=== PATIENT | female | born 1955 | race African-American/Black ===

== ENCOUNTER 2017-12-26 21:10 | Inpatient (IN) | payer MEDICARE ==
[2017-12-26] MEDS ORDERED: Naloxone* 0.4 MG/ML 1 ML VIAL ONE (22:26)
[2017-12-26] MEDS ORDERED: Naloxone* 0.4 MG/ML 1 ML VIAL IV PUSH ONE (22:31)
[2017-12-26] MEDS ORDERED: NS 0.9% 1000 ML*IV.FLUID BOLUS ONE (22:32)
[2017-12-27 00:09] LABS: ABS Basophils 0 10^3/ul (0-0.2); ABS Eosinophils 0.1 10^3/ul (0-0.6); ABS Lymphocytes 1.4 10^3/ul (1.0-4.8); ABS Monocytes 1.5 10^3/ul (0-0.8); ABS Neutrophils 5.3 10^3/ul (1.5-7.7); ABS Nucleated RBC 0 10^3/ul; Eosinophil % 0.9 % (0-6); Hematocrit 32 % (35-47); Hemoglobin 9.9 g/dl (12.0-16.0); Lymphocyte % 16.3 % (25-47); Mean Corpuscular HGB Conc 31 g/dl (31-36); Mean Corpuscular Hemoglobin 25 pg (27-31); Mean Corpuscular Volume 79 fL (80-97); Mean Platelet Volume 8.5 um3 (7.4-10.4); Nucleated Red Blood Cells % 0; Platelet Count 196 10^3/ul (150-450); Red Blood Count 4.04 10^6/ul (4.0-5.4); Red Cell Distribution Width 21 % (10.5-15); White Blood Count 8.3 10^3/ul (3.5-10.8)
[2017-12-27 00:23] LABS: INR 0.95 (0.77-1.02)
[2017-12-27] MEDS ORDERED: NS 0.9% 1000 ML* 1,000 ML IV ONE ×2 (00:33→01:28)
[2017-12-27 01:10] LABS: Urine Appearance Cloudy; Urine Blood 2+ (Negative); Urine Color Yellow; Urine Ketones Trace (Negative); Urine Protein 1+(30 mg/dL) (Negative); Urine Specific Gravity 1.019 (1.010-1.030); Urine Urobilinogen Negative (Negative)
--- NOTE | 2017-12-27 02:58 | HP ---
H&P (Free Text) History and Physical: PCP: ISABELL Yoder MD Date/Time: 12/27/2017 0130 CC: lethargy HPI: Mrs Segura is a 62YO female HX seizure disorder, CHF, HTN, chronic BLE edema, depression, fibromyalgia who is currently too lethargic to give much history. Multiple attempts were made to ask questions resulting in her falling asleep in the middle of even the briefest of answers. No family members are present. As such, much of this history is obtained from ED staff and the available medical record. She denies pain, SOB, F/C, cough, congestion, headache , B/U/F of urine, abdominal discomfort, or other issues. She denies HI/SI or medication abuse, intentional ingestion. ED nursing did report that the son stated he had moved her medications a couple of days ago so she wouldn't know where they were, but it was not clear why he felt the need to do so. At any rate , she lives with her son and he noticed her being excessively sleepy continuing in to Friday when he decided she should be evaluated. She did sustain a fall yesterday and initially reported knee pain to the ED, but denies now. After 3L NS, she remained lethargic & hypotensive and so Shin Bliss MD ED was requested to place a central line for pressor support. However, in the interval 1/2 hour prior to him being available, she became more alert and refused placement. While she could better answer questions, no new information was revealed. PMedHx seizure disorder CHF HTN chronic BLE edema new microcytic anemia depression fibromyalgia restless leg syndrome Ambulatory Orders Benadryl Allergy 25 mg PO PRN 12/27/17 Divalproex ER TAB(*) 1,000 mg PO BEDTIME 12/27/17 Embeda ER 20-0.8 mg Capsule 1 tab PO Q12HR PRN MDD 2 12/27/17 Enalapril Maleate 10 mg PO DAILY 12/27/17 Escitalopram (NF) 20 mg PO DAILY 12/27/17 Gabapentin 300 mg PO BID 12/27/17 Gabapentin 600 mg PO BEDTIME 12/27/17 Metoprolol Succinate XL TAB* 25 mg PO DAILY 12/27/17 Ropinirole HCl 1 mg PO BEDTIME 12/27/17 clonazePAM 1 mg PO TID PRN MDD 3 12/27/17 Allergies MS Codeine Allergy (Verified 12/26/17 21:33) unk SocHx: no tobacco, alcohol, or recreational drugs; lives with her son; disabled ; full code status FamHx: positive for lymphoma, CAD, HTN ROS: as above, otherwise reviewed and all were negative vitals: Vital Signs Temp 36.3 C 12/26/17 21:20 Pulse 81 12/27/17 02:45 Resp 10 12/27/17 02:45 BP 88/51 12/27/17 02:30 Pulse Ox 95 12/27/17 02:45 Intake & Output 12/26/17 12/26/17 12/27/17 11:59 23:59 11:59 Intake Total 1000 1000 Output Total 600 Balance 1000 400 Weight 81.647 kg Intake: IV Fluids 1000 1000 Output: Gerber 600 Constitutional: NAD, normally developed, overweight black female HEENM: atraumatic; sclera/conjunctiva: anicteric/clear; hearing: clinically intact; oropharynx: clear, mucosa tacky Neck: soft tissue: no nuchal rigidity; thyroid: normal Pulmonary: clear to auscultation bilaterally, good aeration, no accessory muscle use CV: RR/RR, normal S1S2, no carotid bruit, no jugular venous distention, 2+ B DP/ PT, 1+ BLE edema Abdominal: soft, non-distended, non-tender, no rebound/guarding/rigidity, normoactive bowel sounds, no hepatosplenomegaly or masses, no costovertebral angle tenderness Musculoskeletal: general: grossly intact, non-tender to palpation Integumental: normal appearance and texture of exposed skin Psychiatric orientation: somnolent, arouses with voice drifting very quickly back to light sleep, oriented to PP not TS affect: somnolent mood: acquiescent eye contact: poor content: unreliable responses: slowed insight: poor Testing: Lab Results 12/26/17 12/26/17 12/26/17 Range/Units 23:40 23:40 23:40 WBC (3.5-10.8) 10^3/ul RBC (4.0-5.4) 10^6/ul Hgb (12.0-16.0) g/dl Hct (35-47) % MCV (80-97) fL MCH (27-31) pg MCHC (31-36) g/dl RDW (10.5-15) % Plt Count (150-450) 10^3/ul MPV (7.4-10.4) um3 Neut % (Auto) (38-83) % Lymph % (Auto) (25-47) % Greene % (Auto) (0-7) % Eos % (Auto) (0-6) % Baso % (Auto) (0-2) % Absolute Neuts (auto) (1.5-7.7) 10^3/ul Absolute Lymphs (auto) (1.0-4.8) 10^3/ul Absolute Monos (auto) (0-0.8) 10^3/ul Absolute Eos (auto) (0-0.6) 10^3/ul Absolute Basos (auto) (0-0.2) 10^3/ul Absolute Nucleated RBC 10^3/ul Nucleated RBC % INR (Anticoag Therapy) 0.95 (0.77-1.02) Sodium 140 (139-145) mmol/L Potassium 4.2 (3.5-5.0) mmol/L Chloride 107 (101-111) mmol/L Carbon Dioxide 19 L (22-32) mmol/L Anion Gap 14 H (2-11) mmol/L BUN 61 H (6-24) mg/dL Creatinine 4.10 H (0.51-0.95) mg/dL Est GFR ( Amer) 14.1 (>60) Est GFR (Non-Af Amer) 11.0 (>60) BUN/Creatinine Ratio 14.9 (8-20) Glucose 95 (70-100) mg/dL Lactic Acid (0.5-2.0) mmol/L Calcium 8.5 L (8.6-10.3) mg/dL Total Bilirubin 0.30 (0.2-1.0) mg/dL AST 69 H (13-39) U/L ALT 23 (7-52) U/L Alkaline Phosphatase 68 (34-104) U/L Ammonia 39 (16-53) mcmol/L Total Creatine Kinase 3072 H (10-223) U/L Troponin I 0.00 (<0.04) ng/mL B-Natriuretic Peptide 56 ( - 100) pg/mL Total Protein 6.9 (6.4-8.9) g/dL Albumin 3.7 (3.2-5.2) g/dL Globulin 3.2 (2-4) g/dL Albumin/Globulin Ratio 1.2 (1-3) TSH 0.25 L (0.34-5.60) mcIU/mL Urine Color Urine Appearance Urine pH (5-9) Ur Specific [place] (1.010-1.030) Urine Protein (Negative) Urine Ketones (Negative) Urine Blood (Negative) Urine Nitrate (Negative) Urine Bilirubin (Negative) Urine Urobilinogen (Negative) Ur Leukocyte Esterase (Negative) Urine WBC (Auto) (Absent) Urine RBC (Auto) (Absent) Ur Squamous Epith Cells (Absent) Urine Bacteria (Absent) Hyaline Casts (Absent) Urine Glucose (Negative) Salicylates < 2.50 (<30) mg/dL Urine Opiates Screen (None Detect) Acetaminophen < 15 mcg/mL Ur Barbiturates Screen (None Detect) Valproic Acid 80.0 (50-100) mcg/mL Ur Phencyclidine Scrn (None Detect) Ur Amphetamines Screen (None Detect) U Benzodiazepines Scrn (None Detect) Urine Cocaine Screen (None Detect) U Cannabinoids Screen (None Detect) Serum Alcohol < 10 (<10) mg/dL 12/26/17 12/26/17 12/27/17 Range/Units 23:40 23:40 00:51 WBC 8.3 (3.5-10.8) 10^3/ul RBC 4.04 (4.0-5.4) 10^6/ul Hgb 9.9 L (12.0-16.0) g/dl Hct 32 L (35-47) % MCV 79 L (80-97) fL MCH 25 L (27-31) pg MCHC 31 (31-36) g/dl RDW 21 H (10.5-15) % Plt Count 196 (150-450) 10^3/ul MPV 8.5 (7.4-10.4) um3 Neut % (Auto) 64.5 (38-83) % Lymph % (Auto) 16.3 L (25-47) % Greene % (Auto) 17.9 H (0-7) % Eos % (Auto) 0.9 (0-6) % Baso % (Auto) 0.4 (0-2) % Absolute Neuts (auto) 5.3 (1.5-7.7) 10^3/ul Absolute Lymphs (auto) 1.4 (1.0-4.8) 10^3/ul Absolute Monos (auto) 1.5 H (0-0.8) 10^3/ul Absolute Eos (auto) 0.1 (0-0.6) 10^3/ul Absolute Basos (auto) 0 (0-0.2) 10^3/ul Absolute Nucleated RBC 0 10^3/ul Nucleated RBC % 0 INR (Anticoag Therapy) (0.77-1.02) Sodium (139-145) mmol/L Potassium (3.5-5.0) mmol/L Chloride (101-111) mmol/L Carbon Dioxide (22-32) mmol/L Anion Gap (2-11) mmol/L BUN (6-24) mg/dL Creatinine (0.51-0.95) mg/dL Est GFR ( Amer) (>60) Est GFR (Non-Af Amer) (>60) BUN/Creatinine Ratio (8-20) Glucose (70-100) mg/dL Lactic Acid 1.4 (0.5-2.0) mmol/L Calcium (8.6-10.3) mg/dL Total Bilirubin (0.2-1.0) mg/dL AST (13-39) U/L ALT (7-52) U/L Alkaline Phosphatase (34-104) U/L Ammonia (16-53) mcmol/L Total Creatine Kinase (10-223) U/L Troponin I (<0.04) ng/mL B-Natriuretic Peptide ( - 100) pg/mL Total Protein (6.4-8.9) g/dL Albumin (3.2-5.2) g/dL Globulin (2-4) g/dL Albumin/Globulin Ratio (1-3) TSH (0.34-5.60) mcIU/mL Urine Color Yellow Urine Appearance Cloudy Urine pH 5.0 (5-9) Ur Specific [place] 1.019 (1.010-1.030) Urine Protein 1+(30 mg/dl) A (Negative) Urine Ketones Trace A (Negative) Urine Blood 2+ A (Negative) Urine Nitrate Negative (Negative) Urine Bilirubin Negative (Negative) Urine Urobilinogen Negative (Negative) Ur Leukocyte Esterase Negative (Negative) Urine WBC (Auto) Trace(0-5/hpf) (Absent) Urine RBC (Auto) Trace(0-2/hpf) (Absent) Ur Squamous Epith Cells Present A (Absent) Urine Bacteria Absent (Absent) Hyaline Casts Present A (Absent) Urine Glucose Negative (Negative) Salicylates (<30) mg/dL Urine Opiates Screen (None Detect) Acetaminophen mcg/mL Ur Barbiturates Screen (None Detect) Valproic Acid (50-100) mcg/mL Ur Phencyclidine Scrn (None Detect) Ur Amphetamines Screen (None Detect) U Benzodiazepines Scrn (None Detect) Urine Cocaine Screen (None Detect) U Cannabinoids Screen (None Detect) Serum Alcohol (<10) mg/dL 12/27/17 Range/Units 00:51 WBC (3.5-10.8) 10^3/ul RBC (4.0-5.4) 10^6/ul Hgb (12.0-16.0) g/dl Hct (35-47) % MCV (80-97) fL MCH (27-31) pg MCHC (31-36) g/dl RDW (10.5-15) % Plt Count (150-450) 10^3/ul MPV (7.4-10.4) um3 Neut % (Auto) (38-83) % Lymph % (Auto) (25-47) % Greene % (Auto) (0-7) % Eos % (Auto) (0-6) % Baso % (Auto) (0-2) % Absolute Neuts (auto) (1.5-7.7) 10^3/ul Absolute Lymphs (auto) (1.0-4.8) 10^3/ul Absolute Monos (auto) (0-0.8) 10^3/ul Absolute Eos (auto) (0-0.6) 10^3/ul Absolute Basos (auto) (0-0.2) 10^3/ul Absolute Nucleated RBC 10^3/ul Nucleated RBC % INR (Anticoag Therapy) (0.77-1.02) Sodium (139-145) mmol/L Potassium (3.5-5.0) mmol/L Chloride (101-111) mmol/L Carbon Dioxide (22-32) mmol/L Anion Gap (2-11) mmol/L BUN (6-24) mg/dL Creatinine (0.51-0.95) mg/dL Est GFR ( Amer) (>60) Est GFR (Non-Af Amer) (>60) BUN/Creatinine Ratio (8-20) Glucose (70-100) mg/dL Lactic Acid (0.5-2.0) mmol/L Calcium (8.6-10.3) mg/dL Total Bilirubin (0.2-1.0) mg/dL AST (13-39) U/L ALT (7-52) U/L Alkaline Phosphatase (34-104) U/L Ammonia (16-53) mcmol/L Total Creatine Kinase (10-223) U/L Troponin I (<0.04) ng/mL B-Natriuretic Peptide ( - 100) pg/mL Total Protein (6.4-8.9) g/dL Albumin (3.2-5.2) g/dL Globulin (2-4) g/dL Albumin/Globulin Ratio (1-3) TSH (0.34-5.60) mcIU/mL Urine Color Urine Appearance Urine pH (5-9) Ur Specific [place] (1.010-1.030) Urine Protein (Negative) Urine Ketones (Negative) Urine Blood (Negative) Urine Nitrate (Negative) Urine Bilirubin (Negative) Urine Urobilinogen (Negative) Ur Leukocyte Esterase (Negative) Urine WBC (Auto) (Absent) Urine RBC (Auto) (Absent) Ur Squamous Epith Cells (Absent) Urine Bacteria (Absent) Hyaline Casts (Absent) Urine Glucose (Negative) Salicylates (<30) mg/dL Urine Opiates Screen Presumptive positive A (None Detect) Acetaminophen mcg/mL Ur Barbiturates Screen None detected (None Detect) Valproic Acid (50-100) mcg/mL Ur Phencyclidine Scrn None detected (None Detect) Ur Amphetamines Screen None detected (None Detect) U Benzodiazepines Scrn None detected (None Detect) Urine Cocaine Screen None detected (None Detect) U Cannabinoids Screen None detected (None Detect) Serum Alcohol (<10) mg/dL ECG, personally reviewed: NSR rate 82, no ischemia CXR, personally reviewed: diffuse vascular congestion w/o infiltrate CT brain WO, personally reviewed: IMPRESSON: Normal head. Impression: 62F presenting with lethargy over the prior 36 hours found to be in rhabdomyolysis w/ acute renal failure & hypotension; overall it is likely the rhabdo is 2nd to the fall with secondary renal failure contributed to by enalapril; hypotension is likely 2nd build up of blood pressure meds 2nd renal failure DIAGNOSIS & PLAN Primary rhabdomyolysis : IVFs : trend total CK : supportive care acute renal failure : IVFs, trend : consider nephrology consult in AM if no improvement : hold nephrotoxic agents hypotension of uncertain etiology : IVFs : ICU monitoring altered mental status/lethargy : hold morphine/naltrexone : hold clonazepam new microcytic anemia : check anemia labs : stool for occult blood Secondary seizure disorder : continue divalproex : seizure precautions HTN : hold enalapril & metoprolol for now chronic BLE edema : no acute issues depression : continue escitalopram fibromyalgia : continue gabapentin restless leg syndrome : hold ropinirole Admission Rational: inpatient for AMS, rhabdomyolysis, ARF, & hypotension not expected to be adequately improved w/i 48h to allow for discharge DVTp: SCDs Code Status: full HCP: son
[2017-12-27] MEDS ORDERED: Ondansetron INJ* 2 MG/ML VIAL IV PRN (03:34)
[2017-12-27] MEDS ORDERED: CMCS: Melatonin (NF) 3 MG TAB PO PRN (03:34)
[2017-12-27 04:12] LABS: Corrected Retic Count 0.6 % (0.5-1.5); Hematocrit for Retic CNT 32 % (35-47); Immature Retic Fraction 0.46; RBC Retic Count 4.03 10^6/ul (4.6-6.2)
--- NOTE | 2017-12-27 04:46 | ED ---
Rober Lynch Tecjoon, scribed for Tim Bliss MD on 12/26/17 at 2253 . Dizziness - HPI Summary HPI Summary: This patient is a 62 year old female presenting to [facility] accompanied by with a chief complaint of drowsiness, weakness since yesterday. Patient states that she suffered a mechanical fall yesterday. Patient reports knee pain from the fall, but denies any other injury. Patient rates pain 8/10. Symptoms aggravated by nothing. Symptoms alleviated by nothing. Patient additionally reports bilateral lower extremity edema. Patient denies dysuria, chest pain, lightheadedness. Patient was prescribed morphine for pain management, but states she doesnt use it. - History Of Current Complaint Chief Complaint: EDGeneral Stated Complaint: GENERAL ILLNESS Time Seen by Provider: 12/26/17 22:39 Hx Obtained From: Patient Onset/Duration: Still Present Timing: Constant Severity Currently: Moderate - 8/10 Aggravating Factor(s): Nothing Alleviating Factor(s): Nothing Associated Signs And Symptoms: Positive: Negative - dysuria, chest pain, lightheadedness, Other: - bilateral lower extremity edema, mechanical fall, drowsiness - Allergies/Home Medications Allergies/Adverse Reactions: Allergies Allergy/AdvReac Type Severity Reaction Status Date / Time MS Codeine Allergy unk Verified 12/26/17 21:33 Home Medications: Home Medications Benadryl Allergy 25 mg PO PRN 12/27/17 [History] Divalproex ER TAB(*) 1,000 mg PO BEDTIME 12/27/17 [History Confirmed 12/27/17] Embeda ER 20-0.8 mg Capsule 1 tab PO Q12HR PRN MDD 2 12/27/17 [History Confirmed 12/27/17] Enalapril Maleate 10 mg PO DAILY 12/27/17 [History Confirmed 12/27/17] Escitalopram (NF) 20 mg PO DAILY 12/27/17 [History Confirmed 12/27/17] Gabapentin 300 mg PO BID 12/27/17 [History Confirmed 12/27/17] Gabapentin 600 mg PO BEDTIME 12/27/17 [History Confirmed 12/27/17] Metoprolol Succinate XL TAB* 25 mg PO DAILY 12/27/17 [History Confirmed 12/27/17 ] Ropinirole HCl 1 mg PO BEDTIME 12/27/17 [History Confirmed 12/27/17] clonazePAM 1 mg PO TID PRN MDD 3 12/27/17 [History Confirmed 12/27/17] PMH/Surg Hx/FS Hx/Imm Hx Previously Healthy: No Cardiovascular History: Reports: Hx Congestive Heart Failure, Hx Hypertension Musculoskeletal History: Reports: Hx Fibromyalgia Sensory History: Reports: Hx Contacts or Glasses - reading glasses Opthamlomology History: Reports: Hx Contacts or Glasses - reading glasses Psychiatric History: Reports: Hx Bipolar Disorder, Hx Suicide Attempt, Hx of Violent Episodes Against Others Denies: Hx Eating Disorder - Cancer History Hx Chemotherapy: No Hx Radiation Therapy: No Infectious Disease History: No Infectious Disease History: Denies: Traveled Outside the [place] in Last 30 Days - Family History Known Family History: Positive: Hypertension - Social History Lives: With Family Alcohol Use: None Hx Substance Use: No Substance Use Type: Reports: None Hx Tobacco Use: No Smoking Status (MU): Never Smoked Tobacco Review of Systems Negative: Fever Negative: Chest Pain Negative: dysuria Positive: Other - bilateral lower extremity edema, knee pain Neurological: Negative - lightheadedness All Other Systems Reviewed And Are Negative: Yes Physical Exam - Summary Physical Exam Summary: Appearance: Well appearing, no pain distress Skin: warm, dry, reflects adequate perfusion Head/face: normal Eyes: Pupils dilated, even after Narcan ENT: normal Neck: No meningistismus Respiratory: CTA, breath sounds present Cardiovascular: RRR, pulses symmetrical Abdomen: non-tender, soft Bowel Sounds: present Musculoskeletal: 2-3+ lower extremity pitting edema Neuro: normal, sensory motor intact, A&Ox3 Triage Information Reviewed: Yes Vital Signs On Initial Exam: Initial Vitals Temp Pulse Resp BP Pulse Ox 97.3 F 80 16 78/46 96 12/26/17 21:20 12/26/17 21:20 12/26/17 21:20 12/26/17 21:20 12/26/17 21:20 Vital Signs Reviewed: Yes Diagnostics - Vital Signs Vital Signs Temp Pulse Resp BP Pulse Ox 12/26/17 21:59 70 13 93 12/26/17 21:47 144/109 12/26/17 21:20 97.3 F 80 16 78/46 96 - Laboratory Lab Results: Lab Results 12/26/17 12/26/17 12/26/17 Range/Units 23:40 23:40 23:40 WBC (3.5-10.8) 10^3/ul RBC (4.0-5.4) 10^6/ul RBC (Retic) (4.6-6.2) 10^6/ul Hgb (12.0-16.0) g/dl Hct (35-47) % HCT (Retic) (35-47) % MCV (80-97) fL MCH (27-31) pg MCHC (31-36) g/dl RDW (10.5-15) % Plt Count (150-450) 10^3/ul MPV (7.4-10.4) um3 Neut % (Auto) (38-83) % Lymph % (Auto) (25-47) % [place] % (Auto) (0-7) % Eos % (Auto) (0-6) % Baso % (Auto) (0-2) % Absolute Neuts (auto) (1.5-7.7) 10^3/ul Absolute Lymphs (auto) (1.0-4.8) 10^3/ul Absolute Monos (auto) (0-0.8) 10^3/ul Absolute Eos (auto) (0-0.6) 10^3/ul Absolute Basos (auto) (0-0.2) 10^3/ul Absolute Nucleated RBC 10^3/ul Nucleated RBC % Retic Count, Calc (0.5-1.5) % Corrected Retic Count (0.5-1.5) % Retic Shift Factor Retic Production Index Immature Retic Fraction Mean Retic Volume INR (Anticoag Therapy) 0.95 (0.77-1.02) Sodium 140 (139-145) mmol/L Potassium 4.2 (3.5-5.0) mmol/L Chloride 107 (101-111) mmol/L Carbon Dioxide 19 L (22-32) mmol/L Anion Gap 14 H (2-11) mmol/L BUN 61 H (6-24) mg/dL Creatinine 4.10 H (0.51-0.95) mg/dL Est GFR ( Amer) 14.1 (>60) Est GFR (Non-Af Amer) 11.0 (>60) BUN/Creatinine Ratio 14.9 (8-20) Glucose 95 (70-100) mg/dL Lactic Acid (0.5-2.0) mmol/L Calcium 8.5 L (8.6-10.3) mg/dL Iron Cancelled TIBC Cancelled % Saturation Cancelled Unsat Iron Binding Cancelled Transferrin Cancelled Ferritin Cancelled Total Bilirubin 0.30 (0.2-1.0) mg/dL AST 69 H (13-39) U/L ALT 23 (7-52) U/L Alkaline Phosphatase 68 (34-104) U/L Ammonia 39 (16-53) mcmol/L Lactate Dehydrogenase Cancelled Total Creatine Kinase 3072 H (10-223) U/L Troponin I 0.00 (<0.04) ng/mL B-Natriuretic Peptide 56 ( - 100) pg/mL Total Protein 6.9 (6.4-8.9) g/dL Albumin 3.7 (3.2-5.2) g/dL Globulin 3.2 (2-4) g/dL Albumin/Globulin Ratio 1.2 (1-3) Vitamin B12 Cancelled Folate Cancelled TSH 0.25 L (0.34-5.60) mcIU/mL Urine Color Urine Appearance Urine pH (5-9) Ur Specific [place] (1.010-1.030) Urine Protein (Negative) Urine Ketones (Negative) Urine Blood (Negative) Urine Nitrate (Negative) Urine Bilirubin (Negative) Urine Urobilinogen (Negative) Ur Leukocyte Esterase (Negative) Urine WBC (Auto) (Absent) Urine RBC (Auto) (Absent) Ur Squamous Epith Cells (Absent) Urine Bacteria (Absent) Hyaline Casts (Absent) Urine Glucose (Negative) Salicylates < 2.50 (<30) mg/dL Urine Opiates Screen (None Detect) Acetaminophen < 15 mcg/mL Ur Barbiturates Screen (None Detect) Valproic Acid 80.0 (50-100) mcg/mL Ur Phencyclidine Scrn (None Detect) Ur Amphetamines Screen (None Detect) U Benzodiazepines Scrn (None Detect) Urine Cocaine Screen (None Detect) U Cannabinoids Screen (None Detect) Serum Alcohol < 10 (<10) mg/dL 12/26/17 12/26/17 12/27/17 Range/Units 23:40 23:40 00:51 WBC 8.3 (3.5-10.8) 10^3/ul RBC 4.04 (4.0-5.4) 10^6/ul RBC (Retic) 4.03 L (4.6-6.2) 10^6/ul Hgb 9.9 L (12.0-16.0) g/dl Hct 32 L (35-47) % HCT (Retic) 32 L (35-47) % MCV 79 L (80-97) fL MCH 25 L (27-31) pg MCHC 31 (31-36) g/dl RDW 21 H (10.5-15) % Plt Count 196 (150-450) 10^3/ul MPV 8.5 (7.4-10.4) um3 Neut % (Auto) 64.5 (38-83) % Lymph % (Auto) 16.3 L (25-47) % [place] % (Auto) 17.9 H (0-7) % Eos % (Auto) 0.9 (0-6) % Baso % (Auto) 0.4 (0-2) % Absolute Neuts (auto) 5.3 (1.5-7.7) 10^3/ul Absolute Lymphs (auto) 1.4 (1.0-4.8) 10^3/ul Absolute Monos (auto) 1.5 H (0-0.8) 10^3/ul Absolute Eos (auto) 0.1 (0-0.6) 10^3/ul Absolute Basos (auto) 0 (0-0.2) 10^3/ul Absolute Nucleated RBC 0 10^3/ul Nucleated RBC % 0 Retic Count, Calc 0.9 (0.5-1.5) % Corrected Retic Count 0.6 (0.5-1.5) % Retic Shift Factor 1.5 Retic Production Index 0.40 Immature Retic Fraction 0.46 Mean Retic Volume 113.7 INR (Anticoag Therapy) (0.77-1.02) Sodium (139-145) mmol/L Potassium (3.5-5.0) mmol/L Chloride (101-111) mmol/L Carbon Dioxide (22-32) mmol/L Anion Gap (2-11) mmol/L BUN (6-24) mg/dL Creatinine (0.51-0.95) mg/dL Est GFR ( Amer) (>60) Est GFR (Non-Af Amer) (>60) BUN/Creatinine Ratio (8-20) Glucose (70-100) mg/dL Lactic Acid 1.4 (0.5-2.0) mmol/L Calcium (8.6-10.3) mg/dL Iron TIBC % Saturation Unsat Iron Binding Transferrin Ferritin Total Bilirubin (0.2-1.0) mg/dL AST (13-39) U/L ALT (7-52) U/L Alkaline Phosphatase (34-104) U/L Ammonia (16-53) mcmol/L Lactate Dehydrogenase Total Creatine Kinase (10-223) U/L Troponin I (<0.04) ng/mL B-Natriuretic Peptide ( - 100) pg/mL Total Protein (6.4-8.9) g/dL Albumin (3.2-5.2) g/dL Globulin (2-4) g/dL Albumin/Globulin Ratio (1-3) Vitamin B12 Folate TSH (0.34-5.60) mcIU/mL Urine Color Yellow Urine Appearance Cloudy Urine pH 5.0 (5-9) Ur Specific [place] 1.019 (1.010-1.030) Urine Protein 1+(30 mg/dl) A (Negative) Urine Ketones Trace A (Negative) Urine Blood 2+ A (Negative) Urine Nitrate Negative (Negative) Urine Bilirubin Negative (Negative) Urine Urobilinogen Negative (Negative) Ur Leukocyte Esterase Negative (Negative) Urine WBC (Auto) Trace(0-5/hpf) (Absent) Urine RBC (Auto) Trace(0-2/hpf) (Absent) Ur Squamous Epith Cells Present A (Absent) Urine Bacteria Absent (Absent) Hyaline Casts Present A (Absent) Urine Glucose Negative (Negative) Salicylates (<30) mg/dL Urine Opiates Screen (None Detect) Acetaminophen mcg/mL Ur Barbiturates Screen (None Detect) Valproic Acid (50-100) mcg/mL Ur Phencyclidine Scrn (None Detect) Ur Amphetamines Screen (None Detect) U Benzodiazepines Scrn (None Detect) Urine Cocaine Screen (None Detect) U Cannabinoids Screen (None Detect) Serum Alcohol (<10) mg/dL 12/27/17 Range/Units 00:51 WBC (3.5-10.8) 10^3/ul RBC (4.0-5.4) 10^6/ul RBC (Retic) (4.6-6.2) 10^6/ul Hgb (12.0-16.0) g/dl Hct (35-47) % HCT (Retic) (35-47) % MCV (80-97) fL MCH (27-31) pg MCHC (31-36) g/dl RDW (10.5-15) % Plt Count (150-450) 10^3/ul MPV (7.4-10.4) um3 Neut % (Auto) (38-83) % Lymph % (Auto) (25-47) % [place] % (Auto) (0-7) % Eos % (Auto) (0-6) % Baso % (Auto) (0-2) % Absolute Neuts (auto) (1.5-7.7) 10^3/ul Absolute Lymphs (auto) (1.0-4.8) 10^3/ul Absolute Monos (auto) (0-0.8) 10^3/ul Absolute Eos (auto) (0-0.6) 10^3/ul Absolute Basos (auto) (0-0.2) 10^3/ul Absolute Nucleated RBC 10^3/ul Nucleated RBC % Retic Count, Calc (0.5-1.5) % Corrected Retic Count (0.5-1.5) % Retic Shift Factor Retic Production Index Immature Retic Fraction Mean Retic Volume INR (Anticoag Therapy) (0.77-1.02) Sodium (139-145) mmol/L Potassium (3.5-5.0) mmol/L Chloride (101-111) mmol/L Carbon Dioxide (22-32) mmol/L Anion Gap (2-11) mmol/L BUN (6-24) mg/dL Creatinine (0.51-0.95) mg/dL Est GFR ( Amer) (>60) Est GFR (Non-Af Amer) (>60) BUN/Creatinine Ratio (8-20) Glucose (70-100) mg/dL Lactic Acid (0.5-2.0) mmol/L Calcium (8.6-10.3) mg/dL Iron TIBC % Saturation Unsat Iron Binding Transferrin Ferritin Total Bilirubin (0.2-1.0) mg/dL AST (13-39) U/L ALT (7-52) U/L Alkaline Phosphatase (34-104) U/L Ammonia (16-53) mcmol/L Lactate Dehydrogenase Total Creatine Kinase (10-223) U/L Troponin I (<0.04) ng/mL B-Natriuretic Peptide ( - 100) pg/mL Total Protein (6.4-8.9) g/dL Albumin (3.2-5.2) g/dL Globulin (2-4) g/dL Albumin/Globulin Ratio (1-3) Vitamin B12 Folate TSH (0.34-5.60) mcIU/mL Urine Color Urine Appearance Urine pH (5-9) Ur Specific [place] (1.010-1.030) Urine Protein (Negative) Urine Ketones (Negative) Urine Blood (Negative) Urine Nitrate (Negative) Urine Bilirubin (Negative) Urine Urobilinogen (Negative) Ur Leukocyte Esterase (Negative) Urine WBC (Auto) (Absent) Urine RBC (Auto) (Absent) Ur Squamous Epith Cells (Absent) Urine Bacteria (Absent) Hyaline Casts (Absent) Urine Glucose (Negative) Salicylates (<30) mg/dL Urine Opiates Screen Presumptive positive A (None Detect) Acetaminophen mcg/mL Ur Barbiturates Screen None detected (None Detect) Valproic Acid (50-100) mcg/mL Ur Phencyclidine Scrn None detected (None Detect) Ur Amphetamines Screen None detected (None Detect) U Benzodiazepines Scrn None detected (None Detect) Urine Cocaine Screen None detected (None Detect) U Cannabinoids Screen None detected (None Detect) Serum Alcohol (<10) mg/dL Result Diagrams: 12/26/17 23:40 12/26/17 23:40 Lab Statement: Any lab studies that have been ordered have been reviewed, and results considered in the medical decision making process. - Radiology CXR Xray Interpretation: No Acute Changes - CXR reveals, per radiologist, IMPRESSION : NO ACUTE INFILTRATE ED physician has reviewed this radiology report. Radiology Interpretation Completed By: Radiologist - CT CT Brain CT Interpretation: No Acute Changes - CT Head reveals, per radiologist, IMPRESSION: Normal Head. ED physician has reviewed this radiology report. CT Interpretation Completed By: Radiologist - EKG 6638 Cardiac Rate: NL EKG Rhythm: Sinus Rhythm - 82 BPM EKG Interpretation: NSR (82 BPM) normal axis, intervals, ST Re-Evaluation - Re-Evaluation First Eval Re-Evaluation Time: 00:37 Comment: Taking ibuprofen, on Lasix. Patient is not peeing. Dizzy Course/Dx - Course Course Of Treatment: very sedate but alert patient. No apparent injury. On opiates, benzos. No response to narcan. Son in control of medications (? hx of misuse). Pt BPs dropped, IV fluids large volume initiated. Her MS seem to improve thru stay however. MARLEEN with Cr over 4, previously nl. CK resulted high, likely from not moving about due to sedate status. CT neg. Hospitalist brian in room. Will place in ICU and watch BPs. Pt refused to have a CVC line placed. Admit for further, tx for pre-renal cause and rhabdo. - Diagnoses Differential Diagnosis/HQI/PQRI: Medication Reaction, Metabolic Abnormality, Seizure, Other - intercranial hemorrhage, OD, MARLEEN/uremia Provider Diagnoses: Acute renal failure, Rhabdomyolysis, Hypotension, Sedated due to multiple medications - Provider Notifications Discussed Care Of Patient With: Damián Blackmon - brian pt in ED, agrees at admit. Will place in ICU - Critical Care Time Critical Care Time: 30-74 min - CCT is exclusive of separately billable procedures Discharge - Sign-Out/Discharge Documenting (check all that apply): Discharge - Discharge Plan Condition: Guarded Disposition: ADMITTED TO [facility] - Billing Disposition and Condition Condition: GUARDED Disposition: [facility]P-[facility] [place] The documentation as recorded by the Rober newberry Tecjoon accurately reflects the service I personally performed and the decisions made by me, Tim Bliss MD.
[2017-12-27] MEDS: NS 0.9% 1000 ML* 1,000 ML IV SCH ×3 (05:18→19:03)
[2017-12-27] MEDS: Omeprazole CAP* 20 MG PO SCH (05:18)
[2017-12-27 06:14] LABS: ABS Basophils 0 10^3/ul (0-0.2); ABS Eosinophils 0.1 10^3/ul (0-0.6); ABS Lymphocytes 1.7 10^3/ul (1.0-4.8); ABS Monocytes 1.1 10^3/ul (0-0.8); ABS Neutrophils 3.7 10^3/ul (1.5-7.7); ABS Nucleated RBC 0 10^3/ul; Eosinophil % 1.7 % (0-6); Hematocrit 30 % (35-47); Hemoglobin 9.5 g/dl (12.0-16.0); Lymphocyte % 25.4 % (25-47); Mean Corpuscular HGB Conc 32 g/dl (31-36); Mean Corpuscular Hemoglobin 25 pg (27-31); Mean Corpuscular Volume 77 fL (80-97); Nucleated Red Blood Cells % 0.1; Platelet Count 191 10^3/ul (150-450); Red Blood Count 3.89 10^6/ul (4.0-5.4); Red Cell Distribution Width 21 % (10.5-15); White Blood Count 6.6 10^3/ul (3.5-10.8)
[2017-12-27 06:33] LABS: EGFR Non-African American 23.1 (>60)
--- NOTE | 2017-12-27 08:25 | PN ---
Hospitalist Progress Note Date of Service: 12/27/17 I have seen and examined Ms. Segura and assume her care today. She is a 62 year old female with history of bipolar disorder, depression, fibromyalgia. She was admitted overnight for weakness and drowsiness over the past few days and was found to be hypotensive and in acute renal failure. On exam this morning, she is alert, talkative, and in no distress. She has no complaints. SHe denies any new medications, denies alcohol or any illicit drugs , and denies taking any extra medications. BP is improved after volume resuscitation; she has not required any pressor support. On exam, she appears mildly dry. Oriented x 3, follows all commands appropriately. PERRL, face is symmetric, strength 5/5, rrr no murmurs, no rashes, lungs clear. Gerber catheter in place draining clear yellow urine. A/P: 1. Acute Renal Failure, may be due to rhabdo (+ blood, no RBCs in UA and elevated CK), vs ATN vs medication vs. prerenal It is unclear what caused rhabdo, she is not on any medications that should cause rhabdo. She denies falls but says she does not recall all the events of the past few days. Check phos Continue volume resuscitation today Hold gabapentin 2. Encephalopathy Improving today, likely due to polypharmacy in setting of renal failure 3. Hypotension resolved s/p IVF 4. bipolar/depression/fibromyalgia hold ropinerole, gabapentin. continue klonopin, escitalopram.
[2017-12-27] MEDS ORDERED: clonazePAM TAB(*) 1 MG PO PRN (08:28)
[2017-12-27] MEDS ORDERED: Gabapentin CAP(*) 300 MG PO SCH (09:00)
[2017-12-27] MEDS: CMCS: Escitalopram (NF) 10 MG TAB PO SCH (09:25)
[2017-12-27] MEDS: Docusate CAP* 100 MG PO SCH ×2 (09:25→21:14)
--- NOTE | 2017-12-27 09:49 | RAD ---
INDICATION: Altered mental status COMPARISON: Chest x-ray dated June 16, 2016 TECHNIQUE: Single AP portable view of the chest was obtained. FINDINGS: Image quality is compromised due to the relative inferiority of a portable chest x-ray. The heart and mediastinum exhibit normal size and contour. The lungs are grossly clear. There is a stable calcified granuloma measuring 9 mm overlying the right hilum as well as a smaller 3 mm calcified granuloma overlying the lateral right lower lung. There is no evidence of a large pleural effusion. Visualized bones are normal for the patient's age. Surgical clips are again seen overlying the expected location of the gastroesophageal junction and gastric fundus. IMPRESSION: No radiographic evidence for acute cardiopulmonary abnormality on this portable chest x-ray.
--- NOTE | 2017-12-27 10:05 | RAD ---
INDICATION: Altered mental status COMPARISON: None. TECHNIQUE: Contiguous axial sections of the brain were obtained from the skull base to the vertex without contrast. FINDINGS: The ventricles, cisterns and sulci are within normal limits. There is very mild periventricular and subcortical white matter hypoattenuation most consistent with chronic microvascular disease. Otherwise the larsen-white matter differentiation is adequately maintained and there is no sulcal effacement. No significant focal abnormality or mass effect is present. There is no evidence for intracranial hemorrhage. No significant focal osseous abnormality is present. The visualized portion of the paranasal sinuses appear clear. The mastoid air cells are well aerated bilaterally. IMPRESSION: Likely mild chronic microvascular disease without CT apparent acute intracranial abnormality.
[2017-12-27] MEDS: traMADol TAB* 50 MG PO PRN (12:13)
[2017-12-27] MEDS: Divalproex ER TAB(*) 500 MG PO SCH (21:15)
[2017-12-27] MEDS: Gabapentin CAP(*) 300 MG PO SCH (21:15)
[2017-12-28] MEDS: traMADol TAB* 50 MG PO PRN ×2 (00:04→13:57)
[2017-12-28] MEDS: NS 0.9% 1000 ML* 1,000 ML IV SCH ×2 (00:07→05:15)
[2017-12-28] MEDS: Omeprazole CAP* 20 MG PO SCH (05:43)
[2017-12-28 06:12] LABS: ABS Basophils 0 10^3/ul (0-0.2); ABS Eosinophils 0.1 10^3/ul (0-0.6); ABS Lymphocytes 1.7 10^3/ul (1.0-4.8); ABS Monocytes 0.8 10^3/ul (0-0.8); ABS Neutrophils 2.2 10^3/ul (1.5-7.7); ABS Nucleated RBC 0 10^3/ul; Eosinophil % 1.6 % (0-6); Hematocrit 29 % (35-47); Hemoglobin 9.2 g/dl (12.0-16.0); Lymphocyte % 34.8 % (25-47); Mean Corpuscular HGB Conc 32 g/dl (31-36); Mean Corpuscular Hemoglobin 25 pg (27-31); Mean Corpuscular Volume 77 fL (80-97); Mean Platelet Volume 8.8 um3 (7.4-10.4); Nucleated Red Blood Cells % 0; Platelet Count 151 10^3/ul (150-450); Red Blood Count 3.72 10^6/ul (4.0-5.4); Red Cell Distribution Width 21 % (10.5-15); White Blood Count 4.8 10^3/ul (3.5-10.8)
[2017-12-28 06:37] LABS: EGFR Non-African American 93.4 (>60)
[2017-12-28] MEDS: CMCS: Escitalopram (NF) 10 MG TAB PO SCH (09:45)
[2017-12-28] MEDS: Docusate CAP* 100 MG PO SCH ×2 (09:45→21:19)
[2017-12-28] MEDS: Acetaminophen TAB* 325 MG PO PRN (17:29)
--- NOTE | 2017-12-28 17:41 | PN ---
Subjective Date of Service: 12/28/17 Interval History: Feels much better today. Sitting up in the chair eating breakfast. No pain, no confusion. Worked with PT yesterday and felt that she did well. She does admit to several falls over the past month. She would be agreeable to STR if recommended. Objective Active Medications: Acetaminophen (Tylenol Tab*) 650 mg PO Q6H PRN PRN Reason: FEVER/PAIN Last Admin: 12/28/17 17:29 Dose: 650 mg Clonazepam (Klonopin Tab(*)) 1 mg PO TID PRN PRN Reason: ANXIETY Divalproex Sodium (Depakote Er Tab(*)) 1,000 mg PO BEDTIME [facility] Last Admin: 12/27/17 21:15 Dose: 1,000 mg Docusate Sodium (Colace Cap*) 200 mg PO BID [facility] Last Admin: 12/28/17 09:45 Dose: 200 mg Escitalopram Oxalate (Lexapro (Nf)) 20 mg PO DAILY [facility] Last Admin: 12/28/17 09:45 Dose: 20 mg Gabapentin (Neurontin Cap(*)) 600 mg PO BEDTIME [facility] Last Admin: 12/27/17 21:15 Dose: 600 mg Heparin Sodium (Porcine) (Heparin Flush Picc/Ml/Cvc(*)) 1 - 3 ml FLUSH 0600, 1800 [facility] PRN Reason: Protocol Last Admin: 12/28/17 17:31 Dose: 2 ml Melatonin (Melatonin (Nf)) 3 mg PO BEDTIME PRN; Protocol PRN Reason: Sleep Omeprazole (Prilosec Cap*) 20 mg PO DAILY@0600 [facility] Last Admin: 12/28/17 05:43 Dose: 20 mg Ondansetron HCl (Zofran Inj*) 4 mg IV Q6H PRN PRN Reason: NAUSEA Tramadol HCl (Ultram*) 50 mg PO Q6H PRN PRN Reason: PAIN Last Admin: 12/28/17 13:57 Dose: 50 mg Vital Signs - 8 hr 12/28/17 12/28/17 12/28/17 09:43 09:45 10:00 Temperature Pulse Rate 74 76 Respiratory 11 20 17 Rate Blood Pressure 129/85 (mmHg) O2 Sat by Pulse 90 92 Oximetry 12/28/17 12/28/17 12/28/17 10:15 10:30 10:45 Temperature Pulse Rate 104 93 91 Respiratory 21 15 21 Rate Blood Pressure 123/87 (mmHg) O2 Sat by Pulse 87 97 95 Oximetry 12/28/17 12/28/17 12/28/17 11:00 12:56 13:57 Temperature 98 F Pulse Rate 77 74 Respiratory 16 18 16 Rate Blood Pressure 125/78 151/87 (mmHg) O2 Sat by Pulse 93 98 Oximetry 12/28/17 12/28/17 15:44 16:00 Temperature 98.4 F Pulse Rate 58 Respiratory 16 Rate Blood Pressure 147/69 (mmHg) O2 Sat by Pulse 100 100 Oximetry Oxygen Devices in Use Now: None Appearance: alert, well appearing, oriented Eyes: No Scleral Icterus Ears/Nose/Mouth/Throat: NL Teeth, Lips, Gums Neck: NL Appearance and Movements; NL JVP Respiratory: Symmetrical Chest Expansion and Respiratory Effort, Clear to Auscultation Cardiovascular: NL Sounds; No Murmurs; No JVD, RRR Abdominal: NL Sounds; No Tenderness; No Distention Lymphatic: No Cervical Adenopathy Extremities: No Edema Skin: No Rash or Ulcers Neurological: Alert and Oriented x 3, NL Muscle Strength and Tone, - - no tremor. DTRs 2+ Result Diagrams: 12/28/17 06:00 12/28/17 06:00 Additional Lab and Data: Lab Results 12/26/17 12/26/17 12/26/17 Range/Units 23:40 23:40 23:40 WBC (3.5-10.8) 10^3/ul RBC (4.0-5.4) 10^6/ul RBC (Retic) (4.6-6.2) 10^6/ul Hgb (12.0-16.0) g/dl Hct (35-47) % HCT (Retic) (35-47) % MCV (80-97) fL MCH (27-31) pg MCHC (31-36) g/dl RDW (10.5-15) % Plt Count (150-450) 10^3/ul MPV (7.4-10.4) um3 Neut % (Auto) (38-83) % Lymph % (Auto) (25-47) % [place] % (Auto) (0-7) % Eos % (Auto) (0-6) % Baso % (Auto) (0-2) % Absolute Neuts (auto) (1.5-7.7) 10^3/ul Absolute Lymphs (auto) (1.0-4.8) 10^3/ul Absolute Monos (auto) (0-0.8) 10^3/ul Absolute Eos (auto) (0-0.6) 10^3/ul Absolute Basos (auto) (0-0.2) 10^3/ul Absolute Nucleated RBC 10^3/ul Nucleated RBC % Retic Count, Calc (0.5-1.5) % Corrected Retic Count (0.5-1.5) % Retic Shift Factor Retic Production Index Immature Retic Fraction Mean Retic Volume INR (Anticoag Therapy) 0.95 (0.77-1.02) Sodium 140 (139-145) mmol/L Potassium 4.2 (3.5-5.0) mmol/L Chloride 107 (101-111) mmol/L Carbon Dioxide 19 L (22-32) mmol/L Anion Gap 14 H (2-11) mmol/L BUN 61 H (6-24) mg/dL Creatinine 4.10 H (0.51-0.95) mg/dL Est GFR ( Amer) 14.1 (>60) Est GFR (Non-Af Amer) 11.0 (>60) BUN/Creatinine Ratio 14.9 (8-20) Glucose 95 (70-100) mg/dL Lactic Acid (0.5-2.0) mmol/L Calcium 8.5 L (8.6-10.3) mg/dL Iron Cancelled TIBC Cancelled % Saturation Cancelled Unsat Iron Binding Cancelled Transferrin Cancelled Ferritin Cancelled Total Bilirubin 0.30 (0.2-1.0) mg/dL AST 69 H (13-39) U/L ALT 23 (7-52) U/L Alkaline Phosphatase 68 (34-104) U/L Ammonia 39 (16-53) mcmol/L Lactate Dehydrogenase Cancelled Total Creatine Kinase 3072 H (10-223) U/L Troponin I 0.00 (<0.04) ng/mL B-Natriuretic Peptide 56 ( - 100) pg/mL Total Protein 6.9 (6.4-8.9) g/dL Albumin 3.7 (3.2-5.2) g/dL Globulin 3.2 (2-4) g/dL Albumin/Globulin Ratio 1.2 (1-3) Vitamin B12 Cancelled Folate Cancelled TSH 0.25 L (0.34-5.60) mcIU/mL Urine Color Urine Appearance Urine pH (5-9) Ur Specific [place] (1.010-1.030) Urine Protein (Negative) Urine Ketones (Negative) Urine Blood (Negative) Urine Nitrate (Negative) Urine Bilirubin (Negative) Urine Urobilinogen (Negative) Ur Leukocyte Esterase (Negative) Urine WBC (Auto) (Absent) Urine RBC (Auto) (Absent) Ur Squamous Epith Cells (Absent) Urine Bacteria (Absent) Hyaline Casts (Absent) Urine Glucose (Negative) Salicylates < 2.50 (<30) mg/dL Urine Opiates Screen (None Detect) Acetaminophen < 15 mcg/mL Ur Barbiturates Screen (None Detect) Valproic Acid 80.0 (50-100) mcg/mL Ur Phencyclidine Scrn (None Detect) Ur Amphetamines Screen (None Detect) U Benzodiazepines Scrn (None Detect) Urine Cocaine Screen (None Detect) U Cannabinoids Screen (None Detect) Serum Alcohol < 10 (<10) mg/dL 12/26/17 12/26/17 12/27/17 Range/Units 23:40 23:40 00:51 WBC 8.3 (3.5-10.8) 10^3/ul RBC 4.04 (4.0-5.4) 10^6/ul RBC (Retic) 4.03 L (4.6-6.2) 10^6/ul Hgb 9.9 L (12.0-16.0) g/dl Hct 32 L (35-47) % HCT (Retic) 32 L (35-47) % MCV 79 L (80-97) fL MCH 25 L (27-31) pg MCHC 31 (31-36) g/dl RDW 21 H (10.5-15) % Plt Count 196 (150-450) 10^3/ul MPV 8.5 (7.4-10.4) um3 Neut % (Auto) 64.5 (38-83) % Lymph % (Auto) 16.3 L (25-47) % Johnston % (Auto) 17.9 H (0-7) % Eos % (Auto) 0.9 (0-6) % Baso % (Auto) 0.4 (0-2) % Absolute Neuts (auto) 5.3 (1.5-7.7) 10^3/ul Absolute Lymphs (auto) 1.4 (1.0-4.8) 10^3/ul Absolute Monos (auto) 1.5 H (0-0.8) 10^3/ul Absolute Eos (auto) 0.1 (0-0.6) 10^3/ul Absolute Basos (auto) 0 (0-0.2) 10^3/ul Absolute Nucleated RBC 0 10^3/ul Nucleated RBC % 0 Retic Count, Calc 0.9 (0.5-1.5) % Corrected Retic Count 0.6 (0.5-1.5) % Retic Shift Factor 1.5 Retic Production Index 0.40 Immature Retic Fraction 0.46 Mean Retic Volume 113.7 INR (Anticoag Therapy) (0.77-1.02) Sodium (139-145) mmol/L Potassium (3.5-5.0) mmol/L Chloride (101-111) mmol/L Carbon Dioxide (22-32) mmol/L Anion Gap (2-11) mmol/L BUN (6-24) mg/dL Creatinine (0.51-0.95) mg/dL Est GFR ( Amer) (>60) Est GFR (Non-Af Amer) (>60) BUN/Creatinine Ratio (8-20) Glucose (70-100) mg/dL Lactic Acid 1.4 (0.5-2.0) mmol/L Calcium (8.6-10.3) mg/dL Iron TIBC % Saturation Unsat Iron Binding Transferrin Ferritin Total Bilirubin (0.2-1.0) mg/dL AST (13-39) U/L ALT (7-52) U/L Alkaline Phosphatase (34-104) U/L Ammonia (16-53) mcmol/L Lactate Dehydrogenase Total Creatine Kinase (10-223) U/L Troponin I (<0.04) ng/mL B-Natriuretic Peptide ( - 100) pg/mL Total Protein (6.4-8.9) g/dL Albumin (3.2-5.2) g/dL Globulin (2-4) g/dL Albumin/Globulin Ratio (1-3) Vitamin B12 Folate TSH (0.34-5.60) mcIU/mL Urine Color Yellow Urine Appearance Cloudy Urine pH 5.0 (5-9) Ur Specific [place] 1.019 (1.010-1.030) Urine Protein 1+(30 mg/dl) A (Negative) Urine Ketones Trace A (Negative) Urine Blood 2+ A (Negative) Urine Nitrate Negative (Negative) Urine Bilirubin Negative (Negative) Urine Urobilinogen Negative (Negative) Ur Leukocyte Esterase Negative (Negative) Urine WBC (Auto) Trace(0-5/hpf) (Absent) Urine RBC (Auto) Trace(0-2/hpf) (Absent) Ur Squamous Epith Cells Present A (Absent) Urine Bacteria Absent (Absent) Hyaline Casts Present A (Absent) Urine Glucose Negative (Negative) Salicylates (<30) mg/dL Urine Opiates Screen (None Detect) Acetaminophen mcg/mL Ur Barbiturates Screen (None Detect) Valproic Acid (50-100) mcg/mL Ur Phencyclidine Scrn (None Detect) Ur Amphetamines Screen (None Detect) U Benzodiazepines Scrn (None Detect) Urine Cocaine Screen (None Detect) U Cannabinoids Screen (None Detect) Serum Alcohol (<10) mg/dL 12/27/17 Range/Units 00:51 WBC (3.5-10.8) 10^3/ul RBC (4.0-5.4) 10^6/ul RBC (Retic) (4.6-6.2) 10^6/ul Hgb (12.0-16.0) g/dl Hct (35-47) % HCT (Retic) (35-47) % MCV (80-97) fL MCH (27-31) pg MCHC (31-36) g/dl RDW (10.5-15) % Plt Count (150-450) 10^3/ul MPV (7.4-10.4) um3 Neut % (Auto) (38-83) % Lymph % (Auto) (25-47) % Johnston % (Auto) (0-7) % Eos % (Auto) (0-6) % Baso % (Auto) (0-2) % Absolute Neuts (auto) (1.5-7.7) 10^3/ul Absolute Lymphs (auto) (1.0-4.8) 10^3/ul Absolute Monos (auto) (0-0.8) 10^3/ul Absolute Eos (auto) (0-0.6) 10^3/ul Absolute Basos (auto) (0-0.2) 10^3/ul Absolute Nucleated RBC 10^3/ul Nucleated RBC % Retic Count, Calc (0.5-1.5) % Corrected Retic Count (0.5-1.5) % Retic Shift Factor Retic Production Index Immature Retic Fraction Mean Retic Volume INR (Anticoag Therapy) (0.77-1.02) Sodium (139-145) mmol/L Potassium (3.5-5.0) mmol/L Chloride (101-111) mmol/L Carbon Dioxide (22-32) mmol/L Anion Gap (2-11) mmol/L BUN (6-24) mg/dL Creatinine (0.51-0.95) mg/dL Est GFR ( Amer) (>60) Est GFR (Non-Af Amer) (>60) BUN/Creatinine Ratio (8-20) Glucose (70-100) mg/dL Lactic Acid (0.5-2.0) mmol/L Calcium (8.6-10.3) mg/dL Iron TIBC % Saturation Unsat Iron Binding Transferrin Ferritin Total Bilirubin (0.2-1.0) mg/dL AST (13-39) U/L ALT (7-52) U/L Alkaline Phosphatase (34-104) U/L Ammonia (16-53) mcmol/L Lactate Dehydrogenase Total Creatine Kinase (10-223) U/L Troponin I (<0.04) ng/mL B-Natriuretic Peptide ( - 100) pg/mL Total Protein (6.4-8.9) g/dL Albumin (3.2-5.2) g/dL Globulin (2-4) g/dL Albumin/Globulin Ratio (1-3) Vitamin B12 Folate TSH (0.34-5.60) mcIU/mL Urine Color Urine Appearance Urine pH (5-9) Ur Specific [place] (1.010-1.030) Urine Protein (Negative) Urine Ketones (Negative) Urine Blood (Negative) Urine Nitrate (Negative) Urine Bilirubin (Negative) Urine Urobilinogen (Negative) Ur Leukocyte Esterase (Negative) Urine WBC (Auto) (Absent) Urine RBC (Auto) (Absent) Ur Squamous Epith Cells (Absent) Urine Bacteria (Absent) Hyaline Casts (Absent) Urine Glucose (Negative) Salicylates (<30) mg/dL Urine Opiates Screen Presumptive positive A (None Detect) Acetaminophen mcg/mL Ur Barbiturates Screen None detected (None Detect) Valproic Acid (50-100) mcg/mL Ur Phencyclidine Scrn None detected (None Detect) Ur Amphetamines Screen None detected (None Detect) U Benzodiazepines Scrn None detected (None Detect) Urine Cocaine Screen None detected (None Detect) U Cannabinoids Screen None detected (None Detect) Serum Alcohol (<10) mg/dL Microbiology and Other Data: Microbiology 12/27/17 04:35 Nasal Screen MRSA (PCR)([facility]) - Final Nasal Mrsa Not Detected Assess/Plan/Problems-Billing Assessment: 62 yo female with history of bipolar disorder, depression admitted with weakness and found to have MARLEEN - Patient Problems (1) Acute renal failure Current Visit: Yes Status: Acute Comment: Reports poor PO intake and feeling unwell for a week prior to admission She did have blood in urine and no rbcs, which may have suggested rhabdo, but ck was just mildly elevated Creatinine resolved quickly with IVF resuscitation, which supports a prerenal etiology; I suspect she may have been volume deplete from a viral illness and mild rhabdomyolysis (2) Delirium Current Visit: Yes Status: Acute Code(s): R41.0 - DISORIENTATION, UNSPECIFIED SNOMED Code(s): 8855975 Comment: Resolved May have been polypharmacy in setting of acute renal failure Her son thought she may have taken extra medications, she is unsure (3) Bipolar disorder Current Visit: No Status: Acute Comment: continue gabapentin, klonopin, lexapro, keppra Status and Disposition: PT reported unsteadiness, poor balance, and medium risk for falls with excellent rehab potential, and she and her son are agreeable to STR. Discussed with case managemetn.
[2017-12-28] MEDS: Divalproex ER TAB(*) 500 MG PO SCH (21:16)
[2017-12-28] MEDS: Gabapentin CAP(*) 300 MG PO SCH (21:19)
[2017-12-29] MEDS: Omeprazole CAP* 20 MG PO SCH (05:20)
[2017-12-29] MEDS: CMCS: Escitalopram (NF) 10 MG TAB PO SCH (08:42)
[2017-12-29] MEDS: traMADol TAB* 50 MG PO PRN ×3 (08:42→19:37)
[2017-12-29] MEDS: Docusate CAP* 100 MG PO SCH (08:42)
--- NOTE | 2017-12-29 10:35 | DS ---
CC: Dr. Yoder.* DISCHARGE SUMMARY: DATE OF ADMISSION: 12/26/17 DATE OF DISCHARGE: 12/29/17 PRIMARY CARE PROVIDER: Dr. Yoder. PRIMARY DIAGNOSES: 1. Acute renal failure. 2. Lethargy with associated hypotension. SECONDARY DIAGNOSES: 1. History of seizure disorder. 2. CHF. 3. Hypertension. 4. Depression. 5. Fibromyalgia. 6. Restless leg syndrome. MEDICATIONS ON DISCHARGE: Include: 1. Clonazepam 1 mg 3 times a day as needed for anxiety. 2. Depakote 1000 mg at bedtime. 3. Embeda ER 20/0.8 mg 1 tab twice daily as needed. 4. Enalapril 10 mg daily. 5. Escitalopram 20 mg daily. 6. Gabapentin 300 mg twice daily and 600 mg at bedtime. 7. Ropinirole 1 mg at bedtime. Please note medications which are discontinued include metoprolol, as well as Benadryl. PERTINENT LABORATORY DATA ON PRESENTATION: Creatinine 4.1 decreased to 0.64 a day prior to discharge. Total CK on presentation 3072. TSH 0.25. PERTINENT IMAGING: Performed during hospital stay, brain CT impression: Mildly chronic microvascular disease. HISTORY OF PRESENT ILLNESS AND HOSPITAL COURSE: This is a 62-year-old female with past medical history as outlined in the history of present illness, on the day of admission presented to the hospital after a week of feeling ill, punctuated by increased lethargy, with presentation notable for relative hypotension, systolics in the 60s to 70s, ultimately fluid responsive as well as acute kidney failure, BUN 61, creatinine 4.1 on presentation. On presentation, a central line was being moved to place, however, the patient ultimately became more alert, declined procedure. Her blood pressure and renal function improved with hydration, indicating likely prerenal source to her acute kidney failure. The patient notes that she had been feeling ill all week prior to presentation, although did not note any decreased p.o. intake. She noted that she felt like she had the flu, but did not check any fevers. I suspect she did have some decreased oral intake, resulting in some renal dysfunction, which may have exacerbated her lethargy in the setting of oral narcotics, benzodiazepines, Benadryl, which further led to decreased oral intake and worsened renal dysfunction. Additionally, elevated total CK indicated a lower level of rhabdomyolysis which may have been improving upon presentation, but that had resolved with further rehydration. Her heart rate ranged between the 50s and 80s during the course of the hospital stay off of metoprolol. For this reason, it was discontinued. Her enalapril was restarted upon discharge. Blood pressure was 153/68 on the day of discharge, off of enalapril and metoprolol. She was ambulatory on the day of discharge, felt well , eating and drinking, had no complaints. At followup, please; 1. Recommend repeating thyroid studies in 4 to 6 weeks after acute illness has resolved. TSH 0.25, no corresponding free T3 and free T4. 2. Evaluate blood pressure control. Restart metoprolol as needed. Transthoracic echocardiogram in 2016 did not indicate any systolic heart dysfunction. 3. Consider medication titration including benzodiazepines and opioids as similar problems or lethargy are recurrent. Reasons for return to the hospital including, but not limited to recurrent or worsening symptoms, fevers, chills, night sweats, chest pain, shortness of breath, nausea, vomiting, lightheadedness, loss of consciousness or near loss of consciousness, inability to obtain or tolerate medication were discussed with the patient. She acknowledged understanding. TIME SPENT: Greater than 45 minutes were spent on the discharge of this patient , greater than half was spent [id number] with the patient. [id number]/[facility] #: [id number] DAY[place]
[2017-12-29] MEDS: Acetaminophen TAB* 325 MG PO PRN ×2 (10:39→15:33)
[2017-12-29 13:27] VITALS: BP 150/75
== END 2017-12-29 22:00 | disposition home or self-care (01) | DRG 682 ==
LOC: ED 21:10 → MED 12-27 01:45 → ICU 12-27 02:56 → MED 12-28 12:53
PROVIDERS: ADMIT Hospitalist; ATTEND Internal Medicine
DX: N17.9 Acute kidney failure, unspecified (principal); G92 Toxic encephalopathy; M62.82 Rhabdomyolysis; I95.9 Hypotension, unspecified; R53.83 Other fatigue; G40.909 Epilepsy, unspecified, not intractable, without status epilepticus; I11.0 Hypertensive heart disease with heart failure; I50.9 Heart failure, unspecified; M79.7 Fibromyalgia; G25.81 Restless legs syndrome; M25.569 Pain in unspecified knee; R41.82 Altered mental status, unspecified; F31.9 Bipolar disorder, unspecified; D50.9 Iron deficiency anemia, unspecified; W18.30XA Fall on same level, unspecified, initial encounter; Z79.899 Other long term (current) drug therapy; Z88.5 Allergy status to narcotic agent; Z80.7 Family history of other malignant neoplasms of lymphoid, hematopoietic and related tissues; Z82.49 Family history of ischemic heart disease and other diseases of the circulatory system; Y92.009 Unspecified place in unspecified non-institutional (private) residence as the place of occurrence of the external cause
CPT/HCPCS: 36415; 70450; 71045; 80048; 80053; 80164; 80307; 80320; 80329; 81003; 81015; 82140; 82550; 82607; 82728; 82746; 83540; 83550; 83605; 83615; 83735; 83880; 84100; 84443; 84484; 85025; 85045; 85610; 87086; 87641; 93005; 94760; 99284; A9270-GY; C1751; G0480; G8978-GP-CJ; G8979-GP-CI; G8980-GP-CI; J2310

== ENCOUNTER 2019-02-03 20:36 | Emergency (ER) | payer MEDICAID, MEDICARE ==
--- OUTSIDE RECORDS SUMMARY | 2019-02-03 21:24 | XMS REPORT | Continuity of Care Document ---
:1955 External Reference #:[id number] Author Name Letty Claros Care Team Providers Name Role Phone Cristal Rivera MD Primary Care Physician Unavailable Payers Date Identification Numbers Payment Provider Subscriber Expires: Policy Number: [id number] [employer] (O) Julian Demarkoff 2016 PayID: [id number] [address] [address] [place] [address] Expires: 2016 Policy Number: [id number] Medicare Julian Demarkoff PayID: [id number] [address] [place] [address] Effective: 2018 Policy Number: [id number] [employer] Julian Demarkoff PayID: [id number] [address] [place] [address] Advance Directives Description No Information Available Problems Active Problems Provider Date Chronic back pain Thomas Yoder M.D.,FACP Onset: 06/20/2017 Essential hypertension Ernestine Zaldivar M.D. Onset: 05/02/2016 Insomnia Ernestine Zaldivar M.D. Onset: 05/02/2016 Generalized anxiety disorder Onset: Bipolar disorder Onset: Borderline personality disorder Ernestine Zaldivar M.D. Onset: 07/14/2016 Posttraumatic stress disorder Ernestine Zaldivar M.D. Onset: 07/14/2016 Histrionic personality disorder Ernestine Zaldivar M.D. Onset: 07/18/2016 Inactive Problems Mood disorder Onset: Inactive: 06/20/2017 Note: no depression per Dr. Rivera Family History Date Family Member(s) Observation Comments Father due to Cancer () : (age 62 Mother due to Colon Years) Cancer Mother due to CAD () - premature age 30 , HTN Siblings 2 brother younger age 50 d/t NOE brother older age 30 gun shot wound to heart First Brother 51 : (age 30 Second Brother due to Accidental gun shot Years) Social History Type Date Description Comments Sex Unknown Marital Status 10/29/2016 Lives With Alone Occupation Disabled ETOH Use 10/29/2016 Denies alcohol use Tobacco Use Start: Unknown Patient has never smoked Recreational Drug Use Denies Drug Use Smoking Status Reviewed: 01/15/19 Patient has never smoked Exercise Type/Frequency Exercises regularly stairs Allergies, Adverse Reactions, Alerts Active Allergies Reaction Severity Comments Date Ibuprofen Nausea and Vomiting, facial swelling 05/02/2016 Tylenol Urticaria, added body pain 05/02/2016 Medications Active Medications SIG Qnty Indications Ordering Date Provider Ropinirole HCL Take One Tablet 30tabs Raji Anderson, 10/12/2018 1mg By Mouth AT [employer]OB LITHOGRAPHER Tablets Bedtime Butrans apply one patch 2units G89.4 Shu Ojeda MD 02/19/2018 15mcg/HR Patches to the skin once Weekly every week Gabapentin take one capsule 120caps Thomas Bui 06/20/2017 300mg Capsules by mouth twice a Kuldeep Yoder,FACP day and take two capsules by mouth at bedtime Enalapril Maleate 1 by mouth every 90tabs I10 Shu Ojeda MD 08/19/2016 10mg day Tablets Clonazepam take one tablet 90tabs F31.72 Thomas Bui 1mg Tablets by mouth three Kuldeep Yoder,FACP times a day maximum daily dose=3 tablets Depakote ER Take Two Tablets 60tabs F31.72 [place] 500mg Tablets By Mouth AT Kuldeep Noonan ER 24HR Bedtime Bupropion Take One Tablet Unknown Hydrochloride ER (XL) By Mouth Every Morning 300mg Tablets ER 24HR Zolpidem Tartrate Take One Tablet Unknown 10mg By Mouth AT Tablets Bedtime as Needed For Sleep Maximum Daily Dose 1 History Medications Escitalopram Oxalate Take One Tablet By 30tabs F31.72 Raji Anderson, 08/15 - Mouth Every Day [employer]GR[employer]HER 01/15/2019 20mg Tablets Escitalopram Oxalate 1 by mouth every day 30tabs Thomas Bui 07/14/2017 - [place], 08/15/2017 10mg Tablets M.DBabatunde,FACP Toprol XL 1 by mouth every day 90tabs Thomas Bui 06/05/2017 - 25mg [place], 12/31/2017 Tablets ER 24HR M.DBabatunde,FACP Oxycodone HCL 1 by mouth every 6 60tabs Thomas Bui 02/13/2017 - 5mg hours as needed [place], 12/16/2017 Tablets M.Hao,FACP Butrans apply one patch to [address] [place] [address] 11/21/2016 - 15mcg/HR the skin once every Villanueva, SETUP OPERATOR 12/16/2017 Patches Weekly week [facility] Thomas Bui 10/29/2016 - 10mcg/HR [place], 11/21/2016 Patches Weekly Kuldeep,FACP Atenolol take 1 tablet by 90tabs Thomas Bui 10/29/2016 - 25mg Tablets mouth one time daily [place], 06/05/2017 Kuldeep,FACP Quetiapine Fumarate one by mouth at at Unknown 07/10/2016 - bedtime 08/19/2016 400mg Tablets Bezzerginian is not taking it Ambien take 1 tablet by 30tabs G47.00 Ernestine 05/14/2016 - 10mg Tablets mouth nightly at Kuldeep Zaldivar 07/14/2016 bedtime as needed Trazodone HCL take 1 & 1/2 tablets 90tabs Ernestine 05/02/2016 - 100mg by mouth every night Kuldeep Zaldivar 07/14/2016 Tablets at bedtime as needed Requip Take One Tablet By 30tabs Raji Anderson, - 1mg Tablets Mouth AT Bedtime [facility] 11/10/2018 Morphine Sulfate Take One Tablet By Unknown - 15mg Mouth Every 12 Hours 12/31/2017 Tablets as Directed Maximum Daily Dose Embeda 1 tab bid prn Derek Pedro, - 20-0.8mg DO 03/04/2018 Capsules ER Hydroxyzine HCL take one tablet by 90tabs Thomas Bui - 25mg mouth three times a [place], 12/31/2017 Tablets day as needed for M.D.,FACP anxiety Benadryl Allergy as needed for Unknown - 25mg insomnia /anxiety 08/19/2016 Tablets Potassium Chloride 1 by mouth every day Unknown - Idalmis ER 08/19/2016 Tablets Lasix 1 tablet by mouth as Unknown - 20mg Tablets needed for swelling 08/19/2016 Atenolol 1 by mouth every day Unknown - 25mg Tablets 08/19/2016 Atenolol 1 by mouth every day Unknown - 25mg Tablets 06/03/2016 Gabapentin 2 by mouth three Unknown - 300mg times a day per 10/29/2016 Capsules hospi discharge Zoloft 1 by mouth every day Unknown - 25mg Tablets 07/14/2016 Enalapril Maleate 1/2 by mouth every 90tabs Ernestine - day Kuldeep Zaldivar 08/19/2016 10mg Tablets Gabapentin 1 by mouth three Unknown - 300mg times a day not 05/14/2016 Capsules taking , not on pharmacy refills Potassium Chloride not taking currently Unknown - previosuly 06/03/2016 10Meq/100ML Solution prescribed Furosemide 1 by mouth every day Unknown - 20mg not currently taking 06/03/2016 Tablets Xanax one by mouth three Unknown - 2mg Tablets times a day as 07/14/2016 needed anxiety Ambien CR take 1 tablet by Unknown - 12.5mg mouth at bedtime as 05/14/2016 Tablets ER needed max 1/day Trazodone HCL 1 tablet at bedtime Unknown - 50mg as needed 05/02/2016 Tablets Clonidine HCL 1 by mouth twice a Unknown - 0.1mg day 05/02/2016 Tablets Risperidone 1 by mouth twice a 28tabs Ernestine - 1mg day.... Kuldeep Zaldivar 07/14/2016 Tablets Dispers Quetiapine Fumarate one by mouth at at 30tabs Ernestine - bedtime Kuldeep Zaldivar 07/14/2016 200mg Tablets Bupropion HCL ER 1 by mouth every day 60tabs Ernestine - (XL) Kuldeep Zaldivar 07/14/2016 300mg Tablets ER 24HR Immunizations CPT Code Status Date Vaccine Lot # [id number] Given 08/19/2016 Influ Virus Vaccine, Quadrivalent, Split Virus, Im [id number] Fluzone not PF Vital Signs Date Vital Result Comment 01/15/2019 1:33pm Height 66 inches 5'6" Weight 193.50 lb Heart Rate 94 /min BP Systolic 169 mmHg BP Diastolic 104 mmHg Body Temperature 97.3 F O2 % BldC Oximetry 99 % BMI (Body Mass Index) 31.2 kg/m2 03/04/2018 2:02pm Height 66 inches 5'6" Weight 186.12 lb Heart Rate 98 /min BP Systolic 120 mmHg BP Diastolic 78 mmHg O2 % BldC Oximetry 96 % BMI (Body Mass Index) 30.0 kg/m2 01/06/2018 12:04pm Weight 188.00 lb Heart Rate 90 /min BP Systolic Sitting 128 mmHg BP Diastolic Sitting 80 mmHg Body Temperature 98.0 F O2 % BldC Oximetry 96 % 12/16/2017 11:13am Weight 193.00 lb Heart Rate 79 /min BP Systolic 142 mmHg BP Diastolic 88 mmHg Body Temperature 98.1 F O2 % BldC Oximetry 97 % 06/20/2017 3:58pm Height 66 inches 5'6" Weight 152.00 lb Heart Rate 74 /min BP Systolic Sitting 110 mmHg BP Diastolic Sitting 74 mmHg Body Temperature 97.9 F O2 % BldC Oximetry 98 % BMI (Body Mass Index) 24.5 kg/m2 02/13/2017 2:10pm Weight 159.00 lb Heart Rate 108 /min BP Systolic 138 mmHg BP Diastolic 82 mmHg Body Temperature 98.7 F O2 % BldC Oximetry 97 % 10/29/2016 2:39pm Weight 153.00 lb with shoes Heart Rate 112 /min BP Systolic 150 mmHg BP Diastolic 104 mmHg BP Systolic Recheck 135 mmHg BP Diastolic Recheck 88 mmHg O2 % BldC Oximetry 98 % 08/19/2016 1:01pm Weight 153.00 lb Heart Rate 79 /min BP Systolic Sitting 150 mmHg BP Diastolic Sitting 108 mmHg Body Temperature 97.9 F O2 % BldC Oximetry 99 % 08/19/2016 12:15pm Height 68 inches 5'8" 06/03/2016 2:06pm Height 68 inches 5'8" Weight 136.00 lb with shoes Heart Rate 88 /min BP Systolic 140 mmHg Ra reg cuff BP Diastolic 96 mmHg Ra reg cuff BP Systolic Sitting 142 mmHg LA reg cuff BP Diastolic Sitting 92 mmHg LA reg cuff BP Systolic Standing 146 mmHg LA reg cuff BP Diastolic Standing 94 mmHg LA reg cuff Respiratory Rate 16 /min BMI (Body Mass Index) 20.7 kg/m2 05/14/2016 11:12am Weight 134.00 lb Heart Rate 101 /min BP Systolic Sitting 124 mmHg BP Diastolic Sitting 80 mmHg Body Temperature 98.0 F O2 % BldC Oximetry 98 % 05/02/2016 10:16am Height 65 inches 5'5" Weight 129.00 lb Heart Rate 112 /min BP Systolic Sitting 140 mmHg BP Diastolic Sitting 96 mmHg Body Temperature 96.6 F O2 % BldC Oximetry 96 % BMI (Body Mass Index) 21.5 kg/m2 Results Test Date Facility Test Result H/L Range Note Comp Metabolic Panel 07/15/2018 [facility] Sodium 139 mmol/L N 135-145 [address] [place] [address] [phone] Potassium 4.5 mmol/L N 3.5-5.0 Chloride 106 mmol/L N 101-111 Co2 Carbon Dioxide 24 mmol/L N 22-32 Anion Gap 9 mmol/L N 2-11 Glucose 96 mg/dL N 70-100 Blood Urea Nitrogen 15 mg/dL N 6-24 Creatinine 0.89 mg/dL N 0.51-0.95 BUN/Creatinine Ratio 16.9 N 8-20 Calcium 8.7 mg/dL N 8.6-10.3 Total Protein 7.6 g/dL N 6.4-8.9 Albumin 4.0 g/dL N 3.2-5.2 Globulin 3.6 g/dL N 2-4 Albumin/Globulin Ratio 1.1 N 1-3 Total Bilirubin 0.40 mg/dL N 0.2-1.0 Alkaline Phosphatase 68 U/L N 34-104 Alt 9 U/L N 7-52 Ast 15 U/L N 13-39 Egfr Non- 63.7 >60 Egfr 77.0 >60 1 Laboratory test 07/15/2018 [facility] Valproic Acid 16.0 Low 50-[address] (Depakene) g/[place] [address] [phone] Lipid Profile 07/15/2018 [facility] Triglycerides 55 mg/dL 2 (Trig/Chol/HDL) [address] [place] [address] [phone] Cholesterol 162 mg/dL 3 HDL Cholesterol 103.8 mg/dL 4 LDL Cholesterol 47 mg/dL 5 Laboratory test 07/15/2018 [facility] TSH (Thyroid 1.40 mcIU/mL N 0.34-5.[address] Stim Horm) [place] [address] [phone] Vitamin B12 459 pg/mL N 180-914 6 CBC Auto Diff 07/15/2018 [facility] White Blood 6.5 10^3/uL N 3.5-10.[address] [place] [address] [phone] Red Blood Count 4.68 10^6/uL N 4.00-5.40 Hemoglobin 12.7 g/dL N 12.0-16.0 Hematocrit 39 % N 35-47 Mean Corpuscular Volume 83 fL N 80-97 Mean Corpuscular Hemoglobin 27 pg N 27-31 Mean Corpuscular HGB Conc 33 g/dL N 31-36 Red Cell Distribution Width 16 % High 10.5-15 Platelet Count 288 10^3/uL N 150-450 Mean Platelet Volume 8.8 um3 N 7.4-10.4 Abs Neutrophils 3.3 10^3/uL N 1.5-7.7 Abs Lymphocytes 2.4 10^3/uL N 1.0-4.8 Abs Monocytes 0.7 10^3/uL N 0-0.8 Abs Eosinophils 0 10^3/uL N 0-0.6 Abs Basophils 0.1 10^3/uL N 0-0.2 Abs Nucleated RBC 0 10^3/uL Granulocyte % 52.0 % N 38-83 Lymphocyte % 36.4 % N 25-47 Monocyte % 10.4 % High 0-7 Eosinophil % 0.4 % N 0-6 Basophil % 0.8 % N 0-2 Nucleated Red Blood Cells % 0.1 Laboratory test 07/15/2018 [facility] Free T4 (Free 0.79 ng/dL N 0.61-1.[address] Thyroxine) [place] [address] [phone] T3 Total 109 ng/dL N 87-178 Urinalysis Profile 12/27/2017 [facility] Urine Color Yellow [address] [place] [address] [phone] Urine Appearance Cloudy Urine Specific [place] 1.019 N 1.010-1.030 Urine pH 5.0 N 5-9 Urine Urobilinogen Negative Negative Urine Ketones Trace Abnormal Negative Urine Protein 1+(30 mg/dL) Abnormal Negative Urine Leukocytes Negative Negative Urine Blood 2+ Abnormal Negative Urine Nitrite Negative Negative Urine Bilirubin Negative Negative Urine Glucose Negative Negative Urine White Blood Cell Trace(0-5/hpf) Absent Urine Red Blood Cell Trace(0-2/hpf) Absent Urine Bacteria Absent Absent Urine Squamous Epithelial Cell Present Abnormal Absent Urine Hyaline Casts Present Abnormal Absent Urine Drug 12/27/2017 [facility] Amphetamine Ur None Detected None Detect SCR ED & [address] [place] [address] [phone] Barbiturates Urine Screen None Detected None Detect Benzodiazepine Urine Screen None Detected None Detect Urine Cannabinoids Screen None Detected None Detect Urine Cocaine Screen None Detected None Detect Urine Opiates Screen Presumptive Posi <SEE NOTE> Abnormal None Detect 7 Urine Phencyclidine Screen None Detected None Detect 8 Urine Culture And 12/27/2017 [facility] Urine Culture SEE RESULT [address] [place] [address] [phone] Retic Count 12/26/2017 [facility] Retic Count 0.9 % N 0.5-1. [address] [place] [address] [phone] Corrected Retic Count 0.6 % N 0.5-1.5 Maturation Factor Retic 1.5 Retic Index 0.40 Mean Retic Volume 113.7 Immature Retic Fraction 0.46 RBC Retic Count 4.03 10^6/uL Low 4.6-6.2 Hematocrit for Retic CNT 32 % Low 35-47 Laboratory test 12/26/2017 [facility] Valproic Acid 80.0 g/mL N 50-[address] (Depakene) [place] [address] [phone] Acetaminophen < 15 g/mL 10 Alcohol < 10 mg/dL N <10 Salicylate < 2.50 mg/dL <30 Troponin-I (TnI) 0.00 ng/mL <0.04 TSH (Thyroid Stim Horm) 0.25 mcIU/mL Low 0.34-5.60 Creatine Kinase(CK) 3072 U/L High 10-223 Comp Metabolic Panel 12/26/2017 [facility] Sodium 140 mmol/L N 139-[address] [place] [address] [phone] Potassium 4.2 mmol/L N 3.5-5.0 Chloride 107 mmol/L N 101-111 Co2 Carbon Dioxide 19 mmol/L Low 22-32 Anion Gap 14 mmol/L High 2-11 Calcium 8.5 mg/dL Low 8.6-10.3 Albumin 3.7 g/dL N 3.2-5.2 Total Bilirubin 0.30 mg/dL N 0.2-1.0 Glucose 95 mg/dL N 70-100 Blood Urea Nitrogen 61 mg/dL High 6-24 Creatinine 4.10 mg/dL High 0.51-0.95 BUN/Creatinine Ratio 14.9 N 8-20 Total Protein 6.9 g/dL N 6.4-8.9 Globulin 3.2 g/dL N 2-4 Albumin/Globulin Ratio 1.2 N 1-3 Alkaline Phosphatase 68 U/L N 34-104 Alt 23 U/L N 7-52 Ast 69 U/L High 13-39 Egfr Non- 11.0 >60 Egfr 14.1 >60 11 Laboratory test 12/26/2017 [facility] Lactic Acid 1.4 mmol/L N 0.5-2.[address] [place] [address] [phone] CBC Auto Diff 12/26/2017 [facility] White Blood 8.3 10^3/uL N 3.5-10.[address] [place] [address] [phone] Red Blood Count 4.04 10^6/uL N 4.0-5.4 Hemoglobin 9.9 g/dL Low 12.0-16.0 Hematocrit 32 % Low 35-47 Mean Corpuscular Volume 79 fL Low 80-97 Mean Corpuscular Hemoglobin 25 pg Low 27-31 Mean Corpuscular HGB Conc 31 g/dL N 31-36 Red Cell Distribution Width 21 % High 10.5-15 Platelet Count 196 10^3/uL N 150-450 Mean Platelet Volume 8.5 um3 N 7.4-10.4 Abs Neutrophils 5.3 10^3/uL N 1.5-7.7 Abs Lymphocytes 1.4 10^3/uL N 1.0-4.8 Abs Monocytes 1.5 10^3/uL High 0-0.8 Abs Eosinophils 0.1 10^3/uL N 0-0.6 Abs Basophils 0 10^3/uL N 0-0.2 Abs Nucleated RBC 0 10^3/uL Granulocyte % 64.5 % N 38-83 Lymphocyte % 16.3 % Low 25-47 Monocyte % 17.9 % High 0-7 Eosinophil % 0.9 % N 0-6 Basophil % 0.4 % N 0-2 Nucleated Red Blood Cells % 0 Laboratory test finding 12/26/2017 [facility] Ammonia 39 mcmol/ L N 16-[address] [place] [address] [phone] B-Type Natriuretic Peptide BNP 56 pg/mL 13 Inr/Protime 12/26/2017 [facility] Inr 0.95 N 0.77-1.[address] [place] [address] [phone] Laboratory test 02/13/2017 [facility] Valproic Acid < 13.0 Low 50-[address] (Depakene) g/[place] [address] [phone] Basic Metabolic 02/13/2017 [facility] Sodium 138 N 133-[address] mmol/[place] [address] [phone] Potassium 4.1 mmol/L N 3.5-5.0 Chloride 105 mmol/L N 101-111 Co2 Carbon Dioxide 26 mmol/L N 22-32 Anion Gap 7 mmol/L N 2-11 Glucose 93 mg/dL N 70-100 Blood Urea Nitrogen 15 mg/dL N 6-24 Creatinine 0.83 mg/dL N 0.51-0.95 BUN/Creatinine Ratio 18.1 N 8-20 Egfr Non- 69.4 N >60 Egfr 89.3 N >60 14 Calcium 8.9 mg/dL N 8.6-10.3 HIV 1/2 AB 09/02/2016 [facility] HIV 1 2 Nonreactive N Nonreactive [address] [place] [address] [phone] Laboratory 09/02/2016 [facility] Hepatitis C Nonreactive N Nonreactive test finding [address] [place] [address] [phone] CBC Auto Diff 09/02/2016 [facility] White Blood 4.3 10^3/uL N 3.5-10.[address] [place] [address] [phone] Red Blood Count 4.39 10^6/uL N 4.0-5.4 Hemoglobin 12.7 g/dL N 12.0-16.0 Hematocrit 39 % N 35-47 Mean Corpuscular Volume 88 fL N 80-97 Mean Corpuscular Hemoglobin 29 pg N 27-31 Mean Corpuscular HGB Conc 33 g/dL N 31-36 Red Cell Distribution Width 14 % N 10.5-15 Platelet Count 217 10^3/uL N 150-450 Mean Platelet Volume 9 um3 N 7.4-10.4 Abs Neutrophils 1.6 10^3/uL N 1.5-7.7 Abs Lymphocytes 2.0 10^3/uL N 1.0-4.8 Abs Monocytes 0.5 10^3/uL N 0-0.8 Abs Eosinophils 0 10^3/uL N 0-0.6 Abs Basophils 0 10^3/uL N 0-0.2 Abs Nucleated RBC 0 10^3/uL N Granulocyte % 38.7 % N 38-83 Lymphocyte % 47.3 % High 25-47 Monocyte % 12.5 % High 1-9 Eosinophil % 0.8 % N 0-6 Basophil % 0.7 % N 0-2 Nucleated Red Blood Cells % 0 N Comp Metabolic Panel 09/02/2016 [facility] Sodium 137 mmol/L N 133-[address] [place] [address] [phone] Potassium 3.9 mmol/L N 3.5-5.0 Chloride 104 mmol/L N 101-111 Co2 Carbon Dioxide 26 mmol/L N 22-32 Anion Gap 7 mmol/L N 2-11 Glucose 96 mg/dL N 70-100 Blood Urea Nitrogen 17 mg/dL N 6-24 Creatinine 0.89 mg/dL N 0.51-0.95 BUN/Creatinine Ratio 19.1 N 8-20 Calcium 8.8 mg/dL N 8.6-10.3 Total Protein 6.8 g/dL N 6.4-8.9 Albumin 3.7 g/dL N 3.2-5.2 Globulin 3.1 g/dL N 2-4 Albumin/Globulin Ratio 1.2 N 1-3 Total Bilirubin 0.50 mg/dL N 0.2-1.0 Alkaline Phosphatase 51 U/L N 34-104 Alt 17 U/L N 7-52 Ast 19 U/L N 13-39 Egfr Non- 64.1 N >60 Egfr 82.4 N >60 16 Laboratory test 09/02/2016 [facility] TSH (Thyroid 1.38 mcIU/mL N 0.34-5.[address] Stim Horm) [place] [address] [phone] Vitamin B12 418 pg/mL N 180-914 18 Lyme Disease Serology Negative N Negative 19 Lipid Profile 05/14/2016 [facility] Triglycerides 67 mg/dL N 20 (Trig/Chol/HDL) [address] [place] [address] [phone] Cholesterol 156 mg/dL N 21 HDL Cholesterol 85.4 mg/dL N 22 LDL Cholesterol 57 mg/dL N 23 CBC Auto 05/14/2016 [facility] White Blood 3.4 10^3/uL Low 3.5 -10.[address] [place] [address] [phone] Red Blood Count 4.21 10^6/uL N 4.0-5.4 Hemoglobin 12.0 g/dL N 12.0-16.0 Hematocrit 37 % N 35-47 Mean Corpuscular Volume 88 fL N 80-97 Mean Corpuscular Hemoglobin 29 pg N 27-31 Mean Corpuscular HGB Conc 33 g/dL N 31-36 Red Cell Distribution Width 13 % N 10.5-15 Platelet Count 228 10^3/uL N 150-450 Mean Platelet Volume 9 um3 N 7.4-10.4 Abs Neutrophils 1.4 10^3/uL Low 1.5-7.7 Abs Lymphocytes 1.5 10^3/uL N 1.0-4.8 Abs Monocytes 0.5 10^3/uL N 0-0.8 Abs Eosinophils 0 10^3/uL N 0-0.6 Abs Basophils 0 10^3/uL N 0-0.2 Abs Nucleated RBC 0 10^3/uL N Granulocyte % 40.4 % N 38-83 Lymphocyte % 42.6 % N 25-47 Monocyte % 15.3 % High 1-9 Eosinophil % 1.1 % N 0-6 Basophil % 0.6 % N 0-2 Nucleated Red Blood Cells % 0 N Laboratory test 05/14/2016 [facility] B-Type 19 pg/mL N [address] [place] [address] Peptide BNP [phone] Comp Metabolic 05/14/2016 [facility] Sodium 137 mmol/L N 133- [address] [place] [address] [phone] Potassium 4.5 mmol/L N 3.5-5.0 Chloride 103 mmol/L N 101-111 Co2 Carbon Dioxide 30 mmol/L N 22-32 Anion Gap 4 mmol/L N 2-11 Glucose 85 mg/dL N 70-100 Blood Urea Nitrogen 18 mg/dL N 6-24 Creatinine 0.77 mg/dL N 0.51-0.95 BUN/Creatinine Ratio 23.4 High 8-20 Calcium 9.1 mg/dL N 8.6-10.3 Total Protein 6.8 g/dL N 6.4-8.9 Albumin 3.9 g/dL N 3.2-5.2 Globulin 2.9 g/dL N 2-4 Albumin/Globulin Ratio 1.3 N 1-3 Total Bilirubin 0.30 mg/dL N 0.2-1.0 Alkaline Phosphatase 57 U/L N 34-104 Alt 12 U/L N 7-52 Ast 13 U/L N 13-39 Egfr Non- 75.7 N >60 Egfr 97.4 N >60 25 Urinalysis Profile 05/14/2016 [facility] Urine Color Yellow N [address] [place] [address] [phone] Urine Appearance Cloudy N Urine Specific [place] 1.018 N 1.010-1.030 Urine pH 6.0 N 5-9 Urine Urobilinogen Negative N Negative Urine Ketones Negative N Negative Urine Protein Negative N Negative Urine Leukocytes Negative N Negative Urine Blood Negative N Negative Urine Nitrite Negative N Negative Urine Bilirubin Negative N Negative Urine Glucose Negative N Negative 1 Because ethnic data is not always readily available, this report includes an eGFR for both -Americans and non- Americans. The National Kidney Disease Education Program (NKDEP) does not endorse the use of the MDRD equation for patients that are not between the ages of 18 and 70, are , have extremes of body size, muscle mass, or nutritional status, or are non- or non-. According to the National Kidney Foundation, irrespective of diagnosis, the stage of the disease is based on the level of kidney function: Stage Description GFR(mL/min/1.73 m(2)) 1 Kidney damage with normal or decreased GFR 90 2 Kidney damage with mild decrease in GFR 60-89 3 Moderate decrease in GFR 30-59 4 Severe decrease in GFR 15-29 5 Kidney failure <15 (or dialysis) 2 Desirable: <150 Borderline High: 150-199 High: 200-499 Very High: >500 3 Desirable: <200 Borderline High: 200-239 High: >239 4 Low: <40 Desirable: 40-60 High: >60 5 Desirable: <100 Near Optimal: 100-129 Borderline High: 130-159 High: 160-189 Very High: >189 6 Normal Range 180 to 914 Indeterminate Range 145 to 180 Deficient Range <145 7 Presumptive Positive Presumptive positive results are unconfirmed. 8 The urine specimen was tested at the listed cutoffs: Drug class test level (ng/mL) Amphetamines 500 Barbiturates 200 Benzodiazepine metabolites 200 Cocaine metabolites 150 Cannabinoids 50 Opiates 300 Pcp 25 Specimen was received without chain of custody. Results should be used for medical purposes only. 9 SEE RESULT BELOW Name: JULIAN SEGURA : [address]: Deb Strauss DO Acct: [id number] Unit: [id number] AGE: 62 Location: ICU [id number] Re12/27/17 SEX: F Status: ADM IN SPEC: [id number] VISH: 12/27/17 [facility] [address]: Tim Bliss MD REQ: [id number] RECD: 12/27/17 STATUS: TRACIE MARTINEZ DR: Thomas Yoder MD _ SOURCE: URINE SPDESC: ORDERED: Urine Culture Procedure Result Reported Site Urine Culture Final 12/28/17- 08 ML No Growth (<1,000 CFU/mL) * ML - Main Lab . END OF REPORT DEPARTMENT OF PATHOLOGY, [address] [place] [address] Brandan Peterson M.D. Director [facility] # [id number] 10 Therapeutic concentration: <50 ug/mL Toxic concentration: >120 ug/mL 11 Because ethnic data is not always readily available, this report includes an eGFR for both -Americans and non- Americans. The National Kidney Disease Education Program (NKDEP) does not endorse the use of the MDRD equation for patients that are not between the ages of 18 and 70, are , have extremes of body size, muscle mass, or nutritional status, or are non- or non-. According to the National Kidney Foundation, irrespective of diagnosis, the stage of the disease is based on the level of kidney function: Stage Description GFR(mL/min/1.73 m(2)) 1 Kidney damage with normal or decreased GFR 90 2 Kidney damage with mild decrease in GFR 60-89 3 Moderate decrease in GFR 30-59 4 Severe decrease in GFR 15-29 5 Kidney failure <15 (or dialysis) 12 [facility] Severe Sepsis and Septic Shock Management Bundle Measure requires all lactic acids initially measuring >2.0 mmol/L be repeated. 13 >100 to <200 pg/mL: likely compensated congestive heart failure (CHF) 200 to 400 pg/mL: likely moderate CHF >400 pg/mL: likely moderate to severe CHF 14 Because ethnic data is not always readily available, this report includes an eGFR for both -Americans and non- Americans. The National Kidney Disease Education Program (NKDEP) does not endorse the use of the MDRD equation for patients that are not between the ages of 18 and 70, are , have extremes of body size, muscle mass, or nutritional status, or are non- or non-. According to the National Kidney Foundation, irrespective of diagnosis, the stage of the disease is based on the level of kidney function: Stage Description GFR(mL/min/1.73 m(2)) 1 Kidney damage with normal or decreased GFR 90 2 Kidney damage with mild decrease in GFR 60-89 3 Moderate decrease in GFR 30-59 4 Severe decrease in GFR 15-29 5 Kidney failure <15 (or dialysis) 15 It is recognized that currently available assays for the detection of antibodies to HIV-1 and/or HIV-2 may not detect all infected individuals. HIV antibodies may be undetectable in some stages of the infection and in some clinical conditions. The performance of this assay has not been established for populations of infants or children. Assayed by Chemiluminescence Microparticle Immunoassay on the Siemens Advia Centaur CP. Values obtained with different methods or kits cannot be used interchangeably.The diagnostic specificity of the ADVIA Centaur 1/O/2 Enhanced assay in the low risk population was 99.90% (6052/6058) with a 95% confidence interval of 99.78 to 99.96%. 16 Because ethnic data is not always readily available, this report includes an eGFR for both -Americans and non- Americans. The National Kidney Disease Education Program (NKDEP) does not endorse the use of the MDRD equation for patients that are not between the ages of 18 and 70, are , have extremes of body size, muscle mass, or nutritional status, or are non- or non-. According to the National Kidney Foundation, irrespective of diagnosis, the stage of the disease is based on the level of kidney function: Stage Description GFR(mL/min/1.73 m(2)) 1 Kidney damage with normal or decreased GFR 90 2 Kidney damage with mild decrease in GFR 60-89 3 Moderate decrease in GFR 30-59 4 Severe decrease in GFR 15-29 5 Kidney failure <15 (or dialysis) 17 FASTING 10 HOUR 18 Normal Range 180 to 914 Indeterminate Range 145 to 180 Deficient Range <145 19 Serologic response to B. burgdorferi infection is not detected, but cannot rule out early infection during which low or undetectable antibody levels to B. burgdorferi may be present. If clinically indicated, a new serum specimen should be submitted in 7-14 days. Test Performed by: [facility] [address] [address] Analyst: Cornel Ma II, M.D., Ph.D. 20 Desirable <150 Borderline high 150-199 High 200-499 Very High >500 21 Desirable <200 Borderline high 200-239 High >239 22 Low <40 Desirable: 40-60 High: >60 23 Desirable: <100 mg/dL Near Optimal: 100-129 mg/dL Borderline High: 130-159 mg/dL High: 160-189 mg/dL Very High: >189 mg/dL 24 >100 to <200 pg/mL: likely compensated congestive heart failure (CHF) 200 to 400 pg/mL: likely moderate CHF >400 pg/mL: likely moderate to severe CHF 25 Because ethnic data is not always readily available, this report includes an eGFR for both -Americans and non- Americans. The National Kidney Disease Education Program (NKDEP) does not endorse the use of the MDRD equation for patients that are not between the ages of 18 and 70, are , have extremes of body size, muscle mass, or nutritional status, or are non- or non-. According to the National Kidney Foundation, irrespective of diagnosis, the stage of the disease is based on the level of kidney function: Stage Description GFR(mL/min/1.73 m(2)) 1 Kidney damage with normal or decreased GFR 90 2 Kidney damage with mild decrease in GFR 60-89 3 Moderate decrease in GFR 30-59 4 Severe decrease in GFR 15-29 5 Kidney failure <15 (or dialysis) Procedures Date Code Description Status 10/03/2017 [id number] Mammogram Completed 07/30/2017 [id number] Mammogram Completed 06/18/2016 69920 ECHO Transthorasic Realtime 2D W Doppler & Color Flow Completed Hosp 06/03/2016 02002 EKG Tracing & Interpretation Completed 05/14/2016 55944 EKG Tracing & Interpretation Completed Encounters Type Date Location Provider Dx Diagnosis Office Visit 03/04/2018 [facility] Scientist Internal Raji Anderson G89.4 Chronic pain 2:00p Medicine - [place] [address] F31.72 Bipolar disord, in full remis, most recent episode hypomanic G47.00 Insomnia, unspecified F31.9 Bipolar disorder, unspecified Office Visit 01/06/2018 12:00p [facility] Internal Thomas Bui N17.9 Acute kidney Medicine Kuldeep Yoder,FACP failure, unspecified E05.90 Thyrotoxicosis, unsp without thyrotoxic crisis or storm D50.9 Iron deficiency anemia, unspecified Office Visit 12/29/2017 10:13a [facility] Qasim R53.83 Other fatigue Assoc,eusebio Wood M.D. Hospitalists I95.9 Hypotension, unspecified N17.9 Acute kidney failure, unspecified D50.9 Iron deficiency anemia, unspecified Office Visit 12/28/2017 10:12a [facility] Deb R53.83 Other fatigue Assoc,pc DO [place] Hospitalists I95.9 Hypotension, unspecified N17.9 Acute kidney failure, unspecified Office Visit 12/27/2017 10:11a [facility] Damián Blackmon R53.83 Other fatigue Assoc,eusebio OTERO M.D. Hospitalists I95.9 Hypotension, unspecified N17.9 Acute kidney failure, unspecified D50.9 Iron deficiency anemia, unspecified Office Visit 12/16/2017 11:00a [facility] Internal Thomas Bui R63.5 Abnormal weight Medicine Kuldeep Yoder,FACP gain F31.72 Bipolar disord, in full remis, most recent episode hypomanic I10 Essential (primary) hypertension Z12.11 Encounter for screening for malignant neoplasm of colon Office Visit 06/20/2017 4:20p [facility] Internal Thomas Bui Z00.01 Encounter for Jose Rafael Yoder M.D.,FACP general adult [address] [address] medical exam w abnormal findings F31.32 Bipolar disorder, current episode depressed, moderate I10 Essential (primary) hypertension G89.4 Chronic pain syndrome Z12.31 Encntr screen mammogram for malignant neoplasm of breast Z12.11 Encounter for screening for malignant neoplasm of colon M81.8 Other osteoporosis without current pathological fracture Office Visit 02/13/2017 2:20p [facility] Internal Thomas Yoder, M54.5 Low back pain Jose Rafael Haq M.D.,FACP Rd M25.552 Pain in left hip M25.571 Pain in right ankle and joints of right foot I10 Essential (primary) hypertension 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 hypertension [place] K59.00 Constipation, unspecified R53.83 Other fatigue Z23 Encounter for immunization G47.00 Insomnia, unspecified Office Visit 06/19/2016 1:53p [facility] Brock I10 Essential Assoc,pc MD Yovany (primary) Hospitalists hypertension R60.0 Localized edema Office Visit 06/17/2016 1:53p [facility] Lauren Villatoro I10 Essential Assoc,eusebio Light (primary) Hospitalists hypertension R60.0 Localized edema Office Visit 06/15/2016 1:51p [facility] Wilfrido I10 Essential Assoc,pc Connor, N.P. (primary) Hospitalists hypertension R60.0 Localized edema Office Visit 06/13/2016 1:50p [facility] Marlena I10 Essential Assoc,pc JUAN MANUEL Thornton (primary) Hospitalists hypertension R60.0 Localized edema F32.8 Other depressive episodes Office Visit 06/12/2016 1:49p [facility] Karuna Velarde, I10 Essential ( primary) Assoc,pc N.P. hypertension Hospitalists R60.0 Localized edema F32.8 Other depressive episodes Office Visit 06/03/2016 2:00p [facility] Horacio SBabatunde I50.9 Heart failure, Of [facility] Hopkins, DO unspecified FACC R07.9 Chest pain, unspecified I10 Essential (primary) hypertension Office Visit 05/14/2016 10:50a [facility] Internal Ernestine I10 Essential (primary ) Medicine Ana Zaldivar M.D. hypertension [place] G47.00 Insomnia, unspecified I50.9 Heart failure, unspecified R00.2 Palpitations Office Visit 05/02/2016 10:10a [facility] Internal Sara Washburn Essential (primary) Medicine Kuldeep hypertension F31.9 Bipolar disorder, unspecified G47.00 Insomnia, unspecified Plan of Treatment Future Appointment(s):04/19/2019 1:00 pm - Shu Ojeda MD at [facility] Internal Xyviufkf91/03/2019 1:40 pm - Shu Ojeda MD at [facility] Internal [id number] - Shu Ojeda MDI10 Essential (primary) hypertensionComments:You blood pressure is elevated. 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
--- NOTE | 2019-02-03 23:44 | ED ---
Head Injury - HPI Summary HPI Summary: Patient is a 63 y/o F presenting to ED with complaints of fall and head injury. Fall occurred around 1700 02/03/19. She states that she was standing on a low chair putting up drapes in her home. Patient states "I guess I lost my balance" and had fallen backwards. As she fell, she reports that she struck the back of her head against a piece of furniture. Patient states that she felt dazed afterwards and was lying on the ground. She claims that she had difficulty getting up and experienced blurred vision for a few minutes. She reports no bleeding from where she struck her head but notes the area is soft and hurting. Patient iced her head. Patient went to [facility] and patient was advised to come to ED. While on triage LOC is reported, the patient does not report this in the room. Some neck pain is endorsed as well. Patient is not on blood thinners. PMHx of HTN, CAD, depression. On triage, pain is rated 8/10, nothing is noted to aggravate/alleviate Sx. Home medications and allergies are reviewed. - History Of Current Complaint Chief Complaint: EDHeadInjury Stated Complaint: FALL, CT SCAN SENT FROM PER PT Time Seen by Provider: 02/03/19 23:29 Hx Obtained From: Patient Mechanism Of Injury: Fall From Height Of: - low chair Onset/Duration: Started Hours Ago - 169902/03/19, Still Present Onset of Pain: Immediate, Hours - 17002/03/19, Prior to Arrival Severity Currently: Severe Pain Intensity: 8 Pain Scale Used: 0-10 Numeric Location of Head Injury: Occipital Location: Discrete At: - posterior head Aggravating Factor(s): Other: - nothing Alleviating Factor(s): Other: - nothing Associated Signs And Symptoms: Neck Pain, Visual Changes, Other: - "dazed", difficulty getting up and blurred vision for a few minutes after the fall. no LOC reported. - Allergies/Home Medications Allergies/Adverse Reactions: Allergies Allergy/AdvReac Type Severity Reaction Status Date / Time ibuprofen Allergy Nausea Verified 02/03/19 20:45 PMH/Surg Hx/FS Hx/Imm Hx Endocrine/Hematology History: Reports: Hx Anemia - new microcytic anemia, Other Endocrine/Hematological Disorders - new microcytic anemia Cardiovascular History: Reports: Hx Congestive Heart Failure, Hx Hypertension Musculoskeletal History: Reports: Hx Fibromyalgia Sensory History: Reports: Hx Contacts or Glasses - reading glasses Denies: Hx Hearing Aid Opthamlomology History: Reports: Hx Contacts or Glasses - reading glasses Neurological History: Reports: Hx Seizures Psychiatric History: Reports: Hx Anxiety, Hx Depression, Hx Bipolar Disorder, Hx Suicide Attempt, Hx of Violent Episodes Against Others Denies: Hx Eating Disorder - Cancer History Hx Chemotherapy: No Hx Radiation Therapy: No - Surgical History Surgery Procedure, Year, and Place: Hysterectomy. Gastric bypass Hx Anesthesia Reactions: No Infectious Disease History: No Infectious Disease History: Denies: Traveled Outside the [place] in Last 30 Days - Family History Known Family History: Positive: Hypertension - Social History Alcohol Use: None Hx Substance Use: No Substance Use Type: Reports: None Hx Tobacco Use: No Smoking Status (MU): Never Smoked Tobacco Review of Systems Positive: Blurred Vision Musculoskeletal: Other - POSITIVE - FALL, NECK PAIN, DIFFICULTY GETTING UP AFTER FALL Neurological: Other - POSITIVE - HEAD INJURY, "DAZED"; NEGATIVE - LOC All Other Systems Reviewed And Are Negative: Yes Physical Exam - Summary Physical Exam Summary: Appearance: Well-appearing, Well-nourished, lying in bed comfortably Skin: Warm, dry, no obvious rash; small hematoma on occipital skull Eyes: sclera anicteric, no conjunctival pallor ENT: mucous membranes moist, pharynx appears normal Neck: Supple, nontender Respiratory: Clear to auscultation, no signs of respiratory distress Cardiovascular: Normal S1, S2. No murmurs. Normal distal pulses in tibial and radial bilaterally. Abdomen: Soft, nontender, normal active bowel sounds present Musculoskeletal: Normal, Strength/ROM Intact Neurological: A&Ox3, awake and alert, mentation is normal, speech is fluent and appropriate, GCS 15 Psychiatric: affect is normal, does not appear anxious or depressed Triage Information Reviewed: Yes Vital Signs On Initial Exam: Initial Vitals Temp Pulse Resp BP Pulse Ox 98.4 F 97 18 161/102 100 02/03/19 20:43 02/03/19 20:43 02/03/19 20:43 02/03/19 20:43 02/03/19 20:43 Vital Signs Reviewed: Yes - Geoff Coma Scale Best Eye Response: 4 - Spontaneous Best Motor Response: 6 - Obeys Commands Best Verbal Response: 5 - Oriented Coma Scale Total: 15 Diagnostics - Vital Signs Vital Signs Temp Pulse Resp BP Pulse Ox 02/03/19 20:43 98.4 F 97 18 161/102 100 - Laboratory Lab Statement: Any lab studies that have been ordered have been reviewed, and results considered in the medical decision making process. - CT BRAIN CT CT Interpretation Completed By: Radiologist Summary of CT Findings: IMPRESSION: No acute intracranial findings. THIS REPORT WAS REVIEWED BY DR. AGUILAR. Head Injury Course/Dx Course Of Treatment: Patient is a 63 y/o F presenting to ED with complaints of fall and head injury. Fall occurred around 1700 02/03/19. She states that she was standing on a low chair putting up drapes in her home. Patient states "I guess I lost my balance" and had fallen backwards. As she fell, she reports that she struck the back of her head against a piece of furniture. Patient states that she felt dazed afterwards and was lying on the ground. She claims that she had difficulty getting up and experienced blurred vision for a few minutes. She reports no bleeding from where she struck her head but notes the area is soft and hurting. Patient iced her head. Patient went to [facility] and patient was advised to come to ED. While on triage LOC is reported, the patient does not report this in the room. Some neck pain is endorsed as well. Patient is not on blood thinners. PMHx of HTN, CAD, depression. On physical exam, small hematoma at occipital skull is noted, GCS 15. During ED course, patient received Tylenol [address] IMPRESSION: No acute intracranial findings. This was reviewed with the patient, she is agreeable with discharge to home. - Diagnoses Provider Diagnoses: Head injury Discharge - Sign-Out/Discharge Documenting (check all that apply): Patient Departure - discharge Patient Received Moderate/Deep Sedation with Procedure: No - Discharge Plan Condition: Good Disposition: HOME Patient Education Materials: Head Injury (ED) Referrals: Thomas Yoder MD [Primary Care Provider] - 3 Days (if not better) - Billing Disposition and Condition Condition: GOOD Disposition: Home - Attestation Statements Document Initiated by Scribe: Yes Documenting Scribe: LOVE ESCALANTE Provider For Whom Scribe is Documenting (Include Credential): JILLIAN AGUILAR MD Scribe Attestation: LOVE Lynch, scribed for JILLIAN AGUILAR MD on 02/05/19 at 0458. Scribe Documentation Reviewed: Yes Provider Attestation: The documentation as recorded by the scribe, LOVE ESCALANTE accurately reflects the service I personally performed and the decisions made by me, JILLIAN AGUILAR MD Status of Scribe Document: Viewed
[2019-02-04] MEDS ORDERED: Acetaminophen TAB* 325 MG PO ONE (00:13)
[2019-02-04 00:20] VITALS: BP 130/93
== END 2019-02-04 00:16 | disposition home or self-care (01) ==
LOC: ED 20:36
DX: S09.90XA Unspecified injury of head, initial encounter (principal); S00.03XA Contusion of scalp, initial encounter; W17.89XA Other fall from one level to another, initial encounter; Y92.009 Unspecified place in unspecified non-institutional (private) residence as the place of occurrence of the external cause; Z88.6 Allergy status to analgesic agent
CPT/HCPCS: 70450; 99282; A9270-GY

== ENCOUNTER 2019-07-30 14:24 | Inpatient (IN) | payer MEDICARE ==
--- NOTE | 2019-07-30 15:14 | ED ---
Psychiatric Complaint - HPI Summary HPI Summary: 64 year old F presenting to [facility] accompanied by [id number] complains of insomnia and auditory hallucinations since today. Psychiatric hx. Hx inpatient psychiatric admission. Patient moved to [place] 3 years ago, was being seen at [facility] then left there to see Dr. Yoder. Has been out of medications x1 month because recently changed primary care providers. Wears buprenorphine patch. No hx heroin use. Currently living in an apartment in [facility] per [id number]-zrn. Reports auditory hallucinations. Hears bugs crawling through the pipes of her apartment despite the building being brand new, no one else reporting the same issue, having [address] per [id number]. [facility] staff concerned about her mental status per [id number]. Is not sleeping or eating well. Reports decreased urine output. No suicidal ideation or impulsive behavior. Patient denies fever, chills, erythema of eyes, sore throat, chest pain, shortness of breath, cough, abdominal pain, nausea/vomiting, dysuria, hematuria, myalgia, edema, rash, or dizziness. The patient rates the pain 0/10 in severity. Symptoms aggravated by being off her medications for 1 month. Symptoms alleviated by nothing. - History Of Current Complaint Chief Complaint: EDMentalHealth Time Seen by Provider: 07/30/19 15:10 Hx Obtained From: Patient, Family/Presentation Designer - [id number] Onset/Duration: Lasting Hours, Still Present Timing: Constant Aggravating Factor(s): Nothing Alleviating Factor(s): Nothing Related History: Positive For: Prior Psychiatric Issues - Allergies/Home Medications Allergies/Adverse Reactions: Allergies Allergy/AdvReac Type Severity Reaction Status Date / Time ibuprofen AdvReac Mild Nausea Verified 07/31/19 18:37 Home Medications: Home Medications BuPROPion XL* [Bupropion XL*] 300 mg PO QAM 07/30/19 [History Confirmed 07/30/19 ] Buprenorphine 15 MCG PATCH(NF) [Butrans 15 MCG PATCH(NF)] 15 mcg TRANSDERM Q7D 07/30/19 [History Confirmed 07/30/19] Divalproex ER TAB(*) [Depakote ER TAB(*)] 1,000 mg PO BEDTIME 07/30/19 [History Confirmed 07/30/19] Zolpidem TAB* [Ambien TAB*] 10 mg PO BEDTIME PRN 07/30/19 [History Confirmed ] clonazePAM TAB(*) [KlonoPIN TAB(*)] 1 mg PO TID 07/30/19 [History Confirmed ] rOPINIRole TAB* [Requip TAB*] 1 mg PO BEDTIME 07/30/19 [History Confirmed ] PMH/Surg Hx/FS Hx/Imm Hx Endocrine/Hematology History: Reports: Hx Anemia - new microcytic anemia, Other Endocrine/Hematological Disorders - new microcytic anemia Cardiovascular History: Reports: Hx Congestive Heart Failure, Hx Hypertension Musculoskeletal History: Reports: Hx Fibromyalgia Sensory History: Reports: Hx Contacts or Glasses - reading glasses Denies: Hx Hearing Aid Opthamlomology History: Reports: Hx Contacts or Glasses - reading glasses Neurological History: Reports: Hx Seizures Psychiatric History: Reports: Hx Anxiety, Hx Depression, Hx Bipolar Disorder, Hx Suicide Attempt, Hx of Violent Episodes Against Others Denies: Hx Eating Disorder - Cancer History Hx Chemotherapy: No Hx Radiation Therapy: No - Surgical History Surgery Procedure, Year, and Place: Hysterectomy. Gastric bypass Hx Anesthesia Reactions: No Infectious Disease History: No Infectious Disease History: Denies: Traveled Outside the [place] in Last 30 Days - Family History Known Family History: Positive: Hypertension - Social History Alcohol Use: None Hx Substance Use: No Substance Use Type: Reports: None Hx Tobacco Use: No Smoking Status (MU): Never Smoked Tobacco Review of Systems Negative: Fever, Chills Negative: Erythema Negative: Sore Throat Negative: Chest Pain Negative: Shortness Of Breath, Cough Negative: Abdominal Pain, Vomiting, Nausea Positive: other - decreased urine output. Negative: dysuria, hematuria Negative: Myalgia Negative: Rash Neurological: Negative - Dizziness Positive: Other - insomnia, auditory hallucinations; NEG: SI, impulsive behavior All Other Systems Reviewed And Are Negative: Yes Physical Exam - Summary Physical Exam Summary: Constitutional: Well-developed, Well-nourished, Alert. (-) Distressed Skin: Warm, Dry HENT: Normocephalic; Atraumatic Eyes: Conjunctiva normal Neck: Musculoskeletal ROM normal neck. (-) JVD, (-) Stridor, (-) Tracheal deviation Cardio: Rhythm regular, rate normal, Heart sounds normal; Intact distal pulses; The pedal pulses are 2+ and symmetric. Radial pulses are 2+ and symmetric. (-) Murmur Pulmonary/Chest wall: Effort normal. (-) Respiratory distress, (-) Wheezes, (-) Rales Abd: Soft, (-) tenderness, (-) Distension, (-) Guarding, (-) Rebound Musculoskeletal: (-) Edema Lymph: (-) Cervical adenopathy Neuro: Alert, Oriented x3 Psych: Mood and affect Normal Triage Information Reviewed: Yes Vital Signs On Initial Exam: Initial Vitals Temp Pulse Resp BP Pulse Ox 98.5 F 128 19 165/124 99 07/30/19 14:30 07/30/19 14:30 07/30/19 14:30 07/30/19 14:30 07/30/19 14:30 Vital Signs Reviewed: Yes Procedures - Sedation Patient Received Moderate/Deep Sedation with Procedure: No Diagnostics - Vital Signs Vital Signs Temp Pulse Resp BP Pulse Ox 07/30/19 14:30 98.5 F 128 19 165/124 99 - Laboratory Result Diagrams: 07/30/19 15:57 07/30/19 15:57 Lab Statement: Any lab studies that have been ordered have been reviewed, and results considered in the medical decision making process. - EKG 1640 Cardiac Rate: NL - 92 BPM EKG Rhythm: Sinus Rhythm Re-Evaluation - Re-Evaluation First Eval Re-Evaluation Time: 17:06 Comment: patient is medically cleared for [facility] Course/Dx - Course Course Of Treatment: 64 year old F complains of insomnia and auditory hallucinations since today. Psychiatric hx. Has been out of medications x1 month. Physical exam unremarkable. Bloodwork results with no significant abnormalities except for potassium 3.1, anion gap 14, creatinine 1.03. Urinalysis results with no significant abnormalities except for specific gravity 1.032, protein 1+, ketones 1+, positive urobilinogen, trace leukocyte esterase, WBC 1+, RBC 1+, squamous epithelial cells, calcium oxalate crystals, hyaline casts. In the ED course, the patient was given Bactrim. Spoke with the psychiatric naval aircrewman mechanical and recommended admission. The patient will be signed out to Dr. Mishra upon shift change 07/30/19 22:00 awaiting MHE and pending disposition. - Differential Dx/Clinical Impression Provider Diagnosis: Psychosis Discharge ED - Sign-Out/Discharge Documenting (check all that apply): Sign-Out Patient Signing out patient TO: Hans Mishra - Discharge Plan Condition: Improved Disposition: PSYCHIATRIC FACILITY[facility] - Billing Disposition and Condition Condition: IMPROVED Disposition: Psychiatric Facility [facility] - Attestation Statements Document Initiated by Stephanieibe: Yes Documenting Scribe: Hortensia Black Provider For Whom Scribe is Documenting (Include Credential): Stuart Garcia MD Scribe Attestation: IHortensia, scribed for Stuart Garcia MD on 08/03/19 at 1019. Scribe Documentation Reviewed: Yes Provider Attestation: The documentation as recorded by the stephanieibHortensia mcintyre accurately reflects the service I personally performed and the decisions made by me, Stuart Garcia MD Status of Scribe Document: Viewed
[2019-07-30 16:09] LABS: Urine Appearance Clear; Urine Bacteria Absent (Absent); Urine Bilirubin Negative (Negative); Urine Blood Negative (Negative); Urine Color Amber; Urine Glucose Negative (Negative); Urine Ketones 1+ (Negative); Urine Nitrite Negative (Negative); Urine Protein 1+(30 mg/dL) (Negative); Urine Red Blood Cell 1+(3-5/hpf) (Absent); Urine Specific Gravity 1.032 (1.010-1.030); Urine Squamous Epithelial Cell Present (Absent); Urine Urobilinogen Positive (Negative); Urine White Blood Cell 1+(6-10/hpf) (Absent)
[2019-07-30 16:11] LABS: ABS Lymphocytes 1.9 10^3/ul (1.0-4.8); ABS Monocytes 0.5 10^3/ul (0-0.8); ABS Neutrophils 2.8 10^3/ul (1.5-7.7); Eosinophil % 0.7 %; Hematocrit 39 % (35-47); Lymphocyte % 36.1 %; Mean Corpuscular HGB Conc 33 g/dL (31-36); Mean Corpuscular Hemoglobin 29 pg (27-31); Mean Corpuscular Volume 88 fL (80-97); Mean Platelet Volume 8.1 fL (7.4-10.4); Nucleated Red Blood Cells % 0.1; Platelet Count 273 10^3/uL (150-450); Red Blood Count 4.44 10^6 /uL (3.70-4.87); Red Cell Distribution Width 15 % (10-15); White Blood Count 5.2 10^3/uL (3.5-10.8)
[2019-07-30 16:26] LABS: Troponin I 0.01 ng/mL (<0.04)
[2019-07-30] MEDS ORDERED: Sulfamethox/Trimethoprim DS 800/160* TAB PO ONE (16:30)
[2019-07-30 16:32] LABS: Albumin 4.3 g/dL (3.2-5.2); Albumin/Globulin Ratio 1.2 (1-3); BUN/Creatinine Ratio 15.5 (8-20); Calcium 9.5 mg/dL (8.6-10.3); EGFR African American 64.9 (>60); EGFR Non-African American 53.6 (>60); Globulin 3.6 g/dL (2-4); Potassium 3.1 mmol/L (3.5-5.0); Total Bilirubin 0.6 mg/dL (0.2-1.0); Total Protein 7.9 g/dL (6.4-8.9)
[2019-07-30 18:31] LABS: Acetaminophen < 15 mcg/mL; Alcohol < 10 mg/dL (<10)
[2019-07-30 18:43] LABS: TSH (Thyroid Stimulating Horm) 0.64 mcIU/mL (0.34-5.60)
--- NOTE | 2019-07-30 22:23 | ED ---
Progress - Progress Note Progress Note: This pt is a sign otu to Dr. Mishra from Dr. Garcia at shift change 2200 pending a MHE and disposition. - Consult/PCP Time Called: 20:00 Re-Evaluation - Re-Evaluation First Eval Re-Evaluation Time: 17:06 Comment: patient is medically cleared for MHE Course/Dx - Course Course Of Treatment: This pt is a sign otu to Dr. Mishra from Dr. Garcia at shift change 2200 07/30/19 pending a MHE and disposition. - Diagnoses Provider Diagnoses: Psychosis Discharge ED - Sign-Out/Discharge Documenting (check all that apply): Patient Departure - Discharge Plan Condition: Stable Disposition: PSYCHIATRIC FACILITY-[facility] [place] - Billing Disposition and Condition Condition: STABLE Disposition: Psychiatric Facility [facility] - Attestation Statements Document Initiated by Rosaura: Yes Documenting Scribe: Miguel Angel Chilel Provider For Whom Rosaura is Documenting (Include Credential): Hans Mishra MD Scribe Attestation: Miguel Angel Lynch scribed for Hans Mishra MD on 07/31/19 at 1833. Scribe Documentation Reviewed: Yes Provider Attestation: The documentation as recorded by the Miguel Angel newberry accurately reflects the service I personally performed and the decisions made by , Hans Mishra MD Status of Scribe Document: Viewed
[2019-07-31] MEDS ORDERED: Acetaminophen TAB* 325 MG PO ONE (04:03)
--- NOTE | 2019-07-31 11:08 | ED ---
Progress - Progress Note Progress Note: This patient was signed out from Dr. Mishra at shift change at 0700 on 07/31/19 , pending disposition, awaiting mental health evaluation. The patients condition will be admitted to Dr. Haque with a Dx of psychosis. - Consult/PCP Time Called: 20:00 Re-Evaluation - Re-Evaluation First Eval Re-Evaluation Time: 14:21 Comment: Dr. Haque accepts pt for admission Course/Dx - Course Course Of Treatment: This patient was signed out from Dr. Mishra at shift change at 0700 on 07/31/19, pending disposition, awaiting mental health evaluation. The patients condition will be admitted to Dr. Haque with a Dx of psychosis. - Diagnoses Provider Diagnoses: Psychosis Discharge ED - Sign-Out/Discharge Documenting (check all that apply): Patient Departure - Admit - Discharge Plan Condition: Stable Disposition: PSYCHIATRIC FACILITY[place] [place] - Billing Disposition and Condition Condition: STABLE Disposition: Psychiatric Facility [facility] - Attestation Statements Document Initiated by Scribe: Yes Documenting Scribe: Naheed Laws Provider For Whom Rosaura is Documenting (Include Credential): Venkat Busby MD Scribe Attestation: Naheed Lynch scribed for Venkat Busby MD on 07/31/19 at 1842. Scribe Documentation Reviewed: Yes Provider Attestation: The documentation as recorded by the Naheed newberry accurately reflects the service I personally performed and the decisions made by , Venkat Busby MD Status of Scribe Document: Viewed
--- NOTE | 2019-07-31 13:44 | PN ---
ED Psychiatric Progress Note Date of Service: 07/31/19 Subjective: This is a 64 year-old F who is pending admission to [facility] / transfer to another psychiatric facility / discharge to home / or being observed secondary to acute psychotic decompensation after discontinuing meds about 6 weeks ago. Pt is c/o: I need to get my meds restarted!. Objective: Alert, oriented, well groomed, dressed in scrubs, restricted affect, depressed mood, tangential thinking, denies SI/HI and contract for safety. Assessment: Patient with history of depression who presents with psychotic features after being off prescribed meds. Plan: Admit to BSU for stabilization and to connect her with outpatient psychiatric providers. Vital Signs Temp Pulse Resp BP Pulse Ox 98.2 F 86 16 134/94 100 07/31/19 10:05 07/31/19 10:05 07/31/19 10:05 07/31/19 10:05 07/31/19 10:05 Lab Results - Entire Visit 07/30/19 07/30/19 07/30/19 16:51 15:57 15:57 WBC RBC Hgb Hct MCV MCH MCHC RDW Plt Count MPV Neut % (Auto) Lymph % (Auto) [place] % (Auto) Eos % (Auto) Baso % (Auto) Absolute Neuts (auto) Absolute Lymphs (auto) Absolute Monos (auto) Absolute Eos (auto) Absolute Basos (auto) Absolute Nucleated RBC Nucleated RBC % Sodium Potassium Chloride Carbon Dioxide Anion Gap BUN Creatinine Est GFR ( Amer) Est GFR (Non-Af Amer) BUN/Creatinine Ratio Glucose Lactic Acid 1.1 5.2 H* Calcium Total Bilirubin AST ALT Alkaline Phosphatase Troponin I Total Protein Albumin Globulin Albumin/Globulin Ratio TSH 0.64 Urine Color Urine Appearance Urine pH Ur Specific [place] Urine Protein Urine Ketones Urine Blood Urine Nitrate Urine Bilirubin Urine Urobilinogen Ur Leukocyte Esterase Urine WBC (Auto) Urine RBC (Auto) Ur Squamous Epith Cells Calcium Oxalate Crystal Urine Bacteria Hyaline Casts Urine Glucose Salicylates 2.60 Acetaminophen < 15 Serum Alcohol < 10 07/30/19 07/30/19 07/30/19 15:57 15:57 15:55 WBC 5.2 RBC 4.44 Hgb 13.0 Hct 39 MCV 88 MCH 29 MCHC 33 RDW 15 Plt Count 273 MPV 8.1 Neut % (Auto) 53.8 Lymph % (Auto) 36.1 [place] % (Auto) 8.8 Eos % (Auto) 0.7 Baso % (Auto) 0.6 Absolute Neuts (auto) 2.8 Absolute Lymphs (auto) 1.9 Absolute Monos (auto) 0.5 Absolute Eos (auto) 0.0 Absolute Basos (auto) 0.0 Absolute Nucleated RBC 0.0 Nucleated RBC % 0.1 Sodium 140 Potassium 3.1 L Chloride 104 Carbon Dioxide 22 Anion Gap 14 H BUN 16 Creatinine 1.03 H Est GFR ( Amer) 64.9 Est GFR (Non-Af Amer) 53.6 BUN/Creatinine Ratio 15.5 Glucose 88 Lactic Acid Calcium 9.5 Total Bilirubin 0.60 AST 16 ALT 10 Alkaline Phosphatase 83 Troponin I 0.01 Total Protein 7.9 Albumin 4.3 Globulin 3.6 Albumin/Globulin Ratio 1.2 TSH Urine Color [place] Urine Appearance Clear Urine pH 5.0 Ur Specific [place] 1.032 H Urine Protein 1+(30 mg/dl) A Urine Ketones 1+ A Urine Blood Negative Urine Nitrate Negative Urine Bilirubin Negative Urine Urobilinogen Positive A Ur Leukocyte Esterase Trace A Urine WBC (Auto) 1+(6-10/hpf) A Urine RBC (Auto) 1+(3-5/hpf) A Ur Squamous Epith Cells Present A Calcium Oxalate Crystal Present A Urine Bacteria Absent Hyaline Casts Present A Urine Glucose Negative Salicylates Acetaminophen Serum Alcohol
[2019-07-31] MEDS ORDERED: Al Hydrox/Mg Hydrox/Simet LIQ* 30 ML UDC PO PRN (16:30)
[2019-07-31] MEDS ORDERED: Acetaminophen TAB* 325 MG PO PRN (16:30)
[2019-07-31] MEDS ORDERED: CMCS: Buprenorphine 15 MCG PATCH(NF) 15 MCG/HR PATCH (15 MG TOTAL) TRANSDERM SCH (18:00)
[2019-07-31] MEDS: clonazePAM TAB(*) 1 MG PO SCH (21:55)
[2019-07-31] MEDS: Zolpidem TAB* 10 MG PO PRN (21:55)
[2019-07-31] MEDS: rOPINIRole TAB* 1 MG PO SCH (21:55)
[2019-07-31] MEDS: Divalproex ER TAB(*) 500 MG PO SCH (21:58)
[2019-08-01] MEDS: Buprenorph Patch Check Q Shift 1 NOTE MISC FOLLOW UP SCH ×3 (01:44→22:35)
[2019-08-01 08:01] LABS: HDL Cholesterol 69.7 mg/dL
[2019-08-01] MEDS ORDERED: Influenza VAC *QUAD* 2019-20* 0.5 ML SYRINGE IM ONE (09:00)
[2019-08-01] MEDS ORDERED: Pneumococcal *Vac Polyvalent 0.5 ML VIAL IM ONE (09:00)
[2019-08-01] MEDS: BuPROPion XL* 300 MG TAB.XL PO SCH (09:16)
[2019-08-01] MEDS: Vitamin THERAPEUTIC TAB PO SCH (09:16)
[2019-08-01] MEDS: clonazePAM TAB(*) 1 MG PO SCH ×3 (09:16→22:27)
[2019-08-01] MEDS: diPHENhydraMINE PO* 25 MG PO PRN ×2 (17:23→23:09)
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
[2019-08-01] MEDS: Divalproex ER TAB(*) 500 MG PO SCH (22:27)
[2019-08-01] MEDS: rOPINIRole TAB* 1 MG PO SCH (22:27)
[2019-08-02] MEDS: clonazePAM TAB(*) 1 MG PO SCH (08:23)
[2019-08-02] MEDS: BuPROPion XL* 300 MG TAB.XL PO SCH (08:23)
[2019-08-02] MEDS: Vitamin THERAPEUTIC TAB PO SCH (08:23)
[2019-08-02] MEDS: Buprenorph Patch Check Q Shift 1 NOTE MISC FOLLOW UP SCH ×2 (08:40→20:11)
[2019-08-02] MEDS ORDERED: clonazePAM TAB(*) 1 MG PO PRN (12:25)
[2019-08-02] MEDS: diPHENhydraMINE PO* 25 MG PO PRN (14:11)
[2019-08-02] MEDS: Gabapentin CAP(*) 300 MG PO SCH ×2 (14:12→21:38)
--- NOTE | 2019-08-02 15:19 | PN ---
Subjective - Subjective Date of Service: 08/02/19 Service Type: 89235 Hosp care 25 min moderate complexity Subjective: Patient is euthymic and talkative. She endorses depressed mood and states "I get so depressed I can't move." She states she has been having great difficulty obtaining a prescriber for psychiatric medications. She explains that her PCP left the practice and she was referred to Dr Barraza. In the initial visit, Dr Barraza instructed her to obtain a psychiatrist. Patient went to Dr Paola Ro until the doctor had medical leave. Patient reports since then, she has reached out to many who are not taking new patients. She has an intake at [facility] on aug [facility]. Patient goes on to describe frustration with chronic pain. She states she went to pain specialist, Dr Pedro but did not return due to fear of what she perceives as invasive treatments. Later in the conversation, patient reports being hesitant to accept treatment suggestions for bipolarity. When policy writer typist asks about similarity , patient responds positively and states "I should listen to the doctors." Objective - General Observations Appearance: Disheveled Appears Stated Age: Yes Stature: Thin Posture: WNL Eye Contact: Average Behavior/Activity: WNL - Interaction Observations Attitude Towards Examiner: Cooperative Stated Mood: Dysphoric Affect: Full, Bright Speech Pattern/Tone: Clear, Appropriate, Normal Volume Thought Process: Goal Directed, Circumstantial Perception: WNL Thought Content: Depressive Hallucination Type: Denies Delusion Type: Denies - Cognitive Function Orientation: A&O x 4 Level of Consciousness: Alert Cognition: Impaired Attention/Concentration Estimated Intelligence: Normal Insight: Mostly Blames Others for Problems, Difficulty Acknowledging Presence of Psyciatric Problems Judgment Within Normal Limits: No Ability to Make Reasonable Decisions: Moderately Impaired - Medication Compliance Cooperative with Inpatient Medication Regimen: Yes - Group Participation Participates in Group Activities: Yes Assessment - Assessment Merits Inpatient Hospitalization: For Immediate Safety, For Stabilization Inpatient DSM-V Dx: F31.2 Clinical Impression: 64yo black female, , domiciled with history of bipolar d/o and dependence on opiates and benzodiazepines who was brought to ED by daughter-in- law due to disorganized behavior and insomnia. She endorses depressed mood and difficulty with obtaining psychiatrist in the area. Patient merits hospitalization for immediate safety and stabilization. Plan - Plan Treatment Plan: Name: JULIAN GRACIA Birthdate: 1955 [id number] continue acute intensive psychiatric treatment. collaborate with PCP, Dr Barraza. medication changes: resume gabapentin, change clonazepam to prn dosing. discharge planning to include Dr Barraza, pain clinic and [facility]. Continued Medication Management: Continue Outpt Medication Medications: Current Medications Acetaminophen (Tylenol Tab*) 650 mg PO Q4H PRN PRN Reason: PAIN or TEMP > 101 F Al Hydrox/Mg Hydrox/Simethicone (Maalox Plus*) 30 ml PO Q4H PRN PRN Reason: INDIGESTION Buprenorphine (Butrans 15 Mcg Patch(Nf)) 15 mcg TRANSDERM Q7D [facility] Last Admin: 07/31/19 22:35 Dose: 15 mcg Bupropion HCl (Bupropion Xl*) 300 mg PO QAM [facility] Last Admin: 08/02/19 08:23 Dose: 300 mg Clonazepam (Klonopin Tab(*)) 1 mg PO Q8H PRN PRN Reason: ANXIETY Diphenhydramine HCl (Benadryl Po*) 25 mg PO Q6H PRN PRN Reason: ALLERGIES Last Admin: 08/02/19 14:11 Dose: 25 mg Divalproex Sodium (Depakote Er Tab(*)) 1,000 mg PO BEDTIME [facility] Last Admin: 08/01/19 22:27 Dose: 1,000 mg Gabapentin (Neurontin Cap(*)) 300 mg PO BID [facility] Last Admin: 08/02/19 14:12 Dose: 300 mg Multivitamins (Theragran Tab*) 1 tab PO DAILY [facility] Last Admin: 08/02/19 08:23 Dose: 1 tab Pharmacy Profile Note (Buprenorph Patch Check Q Shift) 1 note FOLLOW UP 0700, 2300 [facility] Last Admin: 08/02/19 08:40 Dose: 1 note Ropinirole HCl (Requip Tab*) 1 mg PO BEDTIME [facility] Last Admin: 08/01/19 22:27 Dose: 1 mg Zolpidem Tartrate (Ambien Tab*) 10 mg PO BEDTIME PRN PRN Reason: SLEEP Last Admin: 07/31/19 21:55 Dose: 10 mg - Discharge Plan Discharge Plan: Outpatient Follow Up
[2019-08-02] MEDS: Divalproex ER TAB(*) 500 MG PO SCH (21:39)
[2019-08-02] MEDS: rOPINIRole TAB* 1 MG PO SCH (21:39)
[2019-08-02] MEDS: clonazePAM TAB(*) 1 MG PO PRN (21:47)
[2019-08-02] MEDS: Zolpidem TAB* 10 MG PO PRN (21:47)
[2019-08-03] MEDS: Buprenorph Patch Check Q Shift 1 NOTE MISC FOLLOW UP SCH ×2 (02:03→08:37)
[2019-08-03] MEDS: Vitamin THERAPEUTIC TAB PO SCH (08:30)
[2019-08-03] MEDS: BuPROPion XL* 300 MG TAB.XL PO SCH (08:31)
[2019-08-03] MEDS: Gabapentin CAP(*) 300 MG PO SCH (08:32)
--- NOTE | 2019-08-03 10:51 | DCNOTE ---
Subjective - Subjective Service Types: 86494 Hosp DC Day Mgmt complex over 30 min Discharge Date: 08/03/19 Subjective: Patient denies depressed mood, SI or passive wish. She has been safe on all checks and social with staff and peers. She reports readiness for discharge. Shaker Operator phoned office of Dr Pedro regarding chronic pain treatment and was told she is not allowed to be scheduled. Shaker Operator asked to speak with Dr Pedro, who reports that he saw her for multiple months and she did not participate in treatment suggestions other than medications. He states she is not a candidate for pain clinic due to this and prevalence of mental health symptoms. Shaker Operator informed patient that she was closed from practice due to not participating in treatment suggestions. She is instructed to follow up with Dr Barraza regarding further treatment for pain management. Patient also informed of f/u appt with therapist at [facility] and recommendation to be referred to psychiatrist within that agency. Objective - General Observations Appearance: Well Groomed Stature: Thin Posture: WNL Eye Contact: Average Behavior/Activity: WNL - Interaction Observations Attitude Towards Examiner: Cooperative, Manipulative Stated Mood: Euthymic Affect: Bright Speech Pattern/Tone: Clear, Appropriate, Normal Volume Thought Process: Coherent, Goal Directed Perception: WNL Thought Content: WNL Hallucination Type: Denies Delusion Type: Denies - Cognitive Function Orientation: A&O x 4 Level of Consciousness: Alert Cognition: WNL Estimated Intelligence: Normal Insight: WNL Judgment Within Normal Limits: Yes - Medication Compliance Cooperative with Inpatient Medication Regimen: Yes - Group Participation Participates in Group Activities: Yes DC Assessment - Assessment Clinical Impression: 64yo black female, , domiciled with history of bipolar d/o and dependence on opiates and benzodiazepines who was brought to ED by daughter-in- law due to disorganized behavior and insomnia. She endorses depressed mood and difficulty with obtaining psychiatrist in the area but has started treatment at [facility]. Patient denies SI or HI and has not exhibited psychotic symptoms on [facility]SU. She no longer meets criteria for involuntary hospitalization and reports desire to be discharged. Merits Inpatient Hospitalization: No Clear for Discharge: Adequate Clinical Respons, Acceptable Safety Profile Inpatient DSM-V Dx: F31.2 Discharge Planning - Discharge Planning Discharge Plan: Outpatient Follow Up Out[facility] Program[facility] Recommendations for Continuing Care: Medication Management, Psychotherapy, Therapeutic Drug Levels, Primary Care Followup Medications: Current Medications A Buprenorphine (Butrans 15 Mcg Patch(Nf)) 15 mcg TRANSDERM Q7D [facility] Last Admin: 07/31/19 22:35 Dose: 15 mcg Bupropion HCl (Bupropion Xl*) 300 mg PO QAM [facility] Last Admin: 08/03/19 08:31 Dose: 300 mg Clonazepam (Klonopin Tab(*)) 1 mg PO Q8H PRN PRN Reason: ANXIETY Last Admin: 08/02/19 21:47 Dose: 1 mg Divalproex Sodium (Depakote Er Tab(*)) 1,000 mg PO BEDTIME [facility] Last Admin: 08/02/19 21:39 Dose: 1,000 mg Gabapentin (Neurontin Cap(*)) 300 mg PO BID [facility] Last Admin: 08/03/19 08:32 Dose: 300 mg Ropinirole HCl (Requip Tab*) 1 mg PO BEDTIME [facility] Last Admin: 08/02/19 21:39 Dose: 1 mg Zolpidem Tartrate (Ambien Tab*) 10 mg PO BEDTIME PRN PRN Reason: SLEEP Last Admin: 08/02/19 21:47 Dose: 10 mg Discharge Planning: Prescriptions provided for discharge [x] Yes [] No Follow up care details as per social work arrangements: [facility] Primary care-- Dr Rebecca Barraza Patient response to discharge plan: [x] eager for discharge [x] agreeable with discharge plan [] ambivalent about discharge [] disagrees with discharge today
[2019-08-03 11:23] VITALS: BP 130/89
[2019-08-03] MEDS: clonazePAM TAB(*) 1 MG PO PRN (13:15)
--- NOTE | 2019-08-04 20:49 | DS ---
CC: Dr. Rebecca Barraza; [facility] * DISCHARGE SUMMARY: DATE OF ADMISSION: 07/31/19 DATE OF DISCHARGE: 08/03/19 SUPERVISING PSYCHIATRIST: Dr. Cr Kirk.* (DICTATED BY AGUSTÍN PRATT NP) PRIMARY DIAGNOSIS: Bipolar disorder, most recent episode manic with psychotic features. SECONDARY DIAGNOSES: 1. Benzodiazepine dependence. 2. Borderline personality disorder. CONDITION AT THE TIME OF DISCHARGE: Improved. The patient has been euthymic with bright affect. She has been safe on all checks, decreased to 30-minute observation. She has been talkative and cooperative with staff. She is well related albeit circumstantial about medications. The patient reported desire to be discharged the day prior. We waited until the following day to obtain collateral information from outpatient providers. She denies depressed mood, suicidal ideation, or passive wish. She reports readiness for discharge. [employer] Builder phoned office of Dr. Pedro regarding chronic pain treatment and was told that she is not allowed to be scheduled. Cathode Builder asked to speak with Dr. Pedro, who reports that he saw her for multiple months and she did not participate in treatment suggestions other than medications. He states that she is not a candidate for pain clinic due to this and prevalence of mental health symptoms. Cathode [employer] informed the patient that she was closed from his practice due to not participating in treatment suggestions. She is instructed to follow up with Dr. Barraza regarding further treatment for pain management. The patient was also informed of followup appointment with therapist at [facility] and the recommendation to be referred to psychiatrist within that agency. The patient is discharged to home. MENTAL STATUS EXAM: Alea is a 64-year-old thin-framed black female wearing a wig, who looks stated age. She is well groomed, wearing hospital scrubs. She makes good eye contact. She is talkative and appears to enjoy conversing. She is alert and oriented x3. Eye contact is good. Concentration good. Memory 3/ 3. Speech is soft, articulate, and spontaneous with normal rate and rhythm. Thought process is logical, goal directed, and mildly circumstantial in regards to medications. There are no perceptual disturbances noted. We identified that she has seen mice straying about in her apartment. Denies other auditory or visual hallucinations. Her mood is euthymic with bright affect. She denies suicidal ideation or passive wish. Insight and judgment are fair. She appears to have average intellect and fund of knowledge is adequate. INSTRUCTIONS GIVEN TO THE PATIENT: A. Medications: The following were electronically prescribed to [facility] [address]: 1. Bupropion XL 300 mg p.o. q.a.m. 2. Clonazepam 1 mg p.o. t.i.d. p.r.n. anxiety. 3. Depakote ER 1000 mg p.o. q.h.s. 4. Gabapentin 300 mg p.o. b.i.d. 5. Requip 1 mg p.o. q.h.s. 6. Ambien 10 mg p.o. q.h.s. p.r.n. insomnia. The following medication she can through primary care: Buprenorphine 15 mg patch q.7 days. B. Diet: Regular. C. Activity: Ambulation as tolerated. Tobacco cessation is not applicable. At the time of the patient's discharge, her valproic acid level was pending, which is 45.0. D: Followup care: [facility] and has an appointment with Uzma Lawson on 08/17/19. She will return to Dr. Barraza for primary care and has an appointment on 08/11/19. E. Substance use followup: The patient denies offer of substance use treatment. HOSPITAL COURSE: Part A. Reason for admission: The patient presented to the emergency department with her son and [id number] due to disorganized behavior and erratic thinking at home. Alea lives in a new apartment and she started hearing something crawling through the hartley. On more than one occasion, she has asked her son and daughter- in-law to come and to see what it was. She also repeatedly complained about a spot on the floor that was not there before. At some point, the patient became convinced that whatever was in the wall gotten into her refrigerator and threw all her food away and she refused to continue staying in the apartment. This led to a lot of back and forth with the apartment management as they did not believe there were any problems. The patient then was staying with her son and rpjmpaxw-vh-oyl and continued to struggle with insomnia, paranoid and grandiose delusions, disorganized thinking and behavior. She had discontinued medications 6 weeks prior to her presentation. The patient has had much trouble identifying psychiatric providers in the area due to firing multiple people at [facility] and difficulty obtaining psychiatrist with openings. Part B. Psychiatric treatment rendered: The patient was admitted to adult behavioral services unit on involuntary status. We restarted the patient on her previous regimen of medications. The patient was present for groups and meals. As stated above, she was well related. She was euthymic and talkative. She talked about frustration with chronic pain. She states that she went to a pain specialist once, but did not return due to fear of what she perceived as invasive treatments. She also endorsed being hesitant to accept treatment suggestions for bipolarity. Throughout the hospital stay when she was given suggestions, she would smile in a coy manner and say "I should listen to the doctors." The patient slept well. She was in behavioral control. She was decreased to 30-minute observation. She reported readiness for discharge. As stated above, she primarily was here for medication coverage until she can obtain a psychiatric provider in the community. AGUSTÍN PRATT NP [id number]/CPS #: [id number] [facility]
== END 2019-08-03 14:10 | disposition home or self-care (01) | DRG 885 ==
LOC: ED 14:24 → BSU 07-31 16:39
PROVIDERS: ADMIT Psychiatry & Neurology Psychiatry; ATTEND Psychiatry & Neurology Psychiatry
DX: F31.2 Bipolar disorder, current episode manic severe with psychotic features (principal); F13.20 Sedative, hypnotic or anxiolytic dependence, uncomplicated; F11.20 Opioid dependence, uncomplicated; I11.0 Hypertensive heart disease with heart failure; I50.9 Heart failure, unspecified; M79.7 Fibromyalgia; F41.9 Anxiety disorder, unspecified; I83.93 Asymptomatic varicose veins of bilateral lower extremities; Z91.5 Personal history of self-harm; Z88.6 Allergy status to analgesic agent; Z91.19 Patient's noncompliance with other medical treatment and regimen; Z79.899 Other long term (current) drug therapy
CPT/HCPCS: 36415; 80053; 80061; 80164; 80320; 80329; 81003; 81015; 83036; 83605; 84443; 84484; 85025; 87086; 93005; 99222; 99232; 99238; 99285; A9270-GY; G0480